=== PATIENT | male | born 1935 | race Caucasian/White ===

== ENCOUNTER 2017-09-30 07:27 | Observation (INO) | payer MEDICARE, OTHER ==
[~2017-09-30] VITALS: Ht 182.9 cm; Wt 60.0 kg
[2017-09-30] VITALS (8 sets, daily range): BP systolic 97–146; BP diastolic 53–68; PULSE 45–77; RESP 14–18; TEMP 97.5–98.1; O2SAT 96–99
[~2017-09-30 07:27] MED LIST: FERR324T4 PO; PROT40TA PO; TAB-TAB PO; Z.0.NO CURRENT MEDS
[2017-09-30] MEDS ORDERED: SODIUM CHLORIDE 0.9% FLUSH 10 ML FLUSH IV FLUSH PRN ×2 (08:00→12:45)
--- NOTE | 2017-09-30 08:01 | PD ---
HPI Chief Complaint: Altered Mental Status Time Seen by Provider: 07:41 Travel History International Travel<30 days: No Contact w/Intl Traveler<30days: No Traveled to known affect area: No History of Present Illness HPI 81-year-old male presents after found wandering around by his truck at an [employer] mall parking lot. The police brought him in voluntarily. Patient states he might be a little bit confused but denies specific complaints. He can't tell me how long he has been like that. He states he has a house in [place]. He states he has nobody he can contact in the area. He states that it might be October but cannot elaborate any further on the date in regards to year or day. He states he hasn't seen a physician in multiple years. History is significantly limited. PFSH Past Medical History Medical History: Denies Significant Hx Arthritis: No Asthma: No Autoimmune Disease: No Blood Disorders: No Anxiety: No Depression: No Heart Rhythm Problems: No Cancer: No Cardiovascular Problems: No High Cholesterol: No Chemotherapy: No Chest Pain: No Congestive Heart Failure: No COPD: No Cerebrovascular Accident: No Diabetes: No Endocrine: No Gastrointestinal Disorders: Yes (RECTAL BLEEDING) GERD: No Glaucoma: No Genitourinary: No Headaches: No Hepatitis: No Hiatal Hernia: No Hypertension: No Immune Disorder: No Musculoskeletal: No Neurologic: No Psychiatric: No Reproductive: No Respiratory: No Migraines: No Myocardial Infarction: No Radiation Therapy: No Renal Failure: No Seizures: No Sickle Cell Disease: No Sleep Apnea: No Thyroid Disease: No Ulcer: No Past Surgical History Abdominal Surgery: No (appendix at age 14.) AICD: No Appendectomy: Yes (IN YOUTH) Arteriovenous Shunt: No Cardiac Surgery: No Cholecystectomy: No Ear Surgery: No Endocrine Surgery: No Eye Surgery: No Genitourinary Surgery: No Gynecologic Surgery: No Insulin Pump: No Joint Replacement: No Oral Surgery: No Pacemaker: No Thoracic Surgery: No Social History Alcohol Use: No Tobacco Use: No Substance Use: No Allergies-Medications (Allergen,Severity, Reaction): Coded Allergies: No Known Allergies (Verified Adverse Reaction, Unknown, 09/30/17) Reported Meds & Prescriptions Reported Meds & Active Scripts Active Reported Ferrous Sulfate 325 Mg Tab 325 Mg PO BID Multivitamin (Multivitamins) 1 Tab Tab 1 Tab PO DAILY Protonix (Pantoprazole Sodium) 40 Mg Tabdr 40 Mg PO DAILY No Current Meds (Miscellaneous Medication) Misc Review of Systems ROS Limitations: Poor Historian Physical Exam Exam Limitations: Poor Historian Narrative GENERAL: Disheveled thin male, pants covered in urine, well-developed patient. SKIN: Warm and dry. HEAD: Normocephalic and atraumatic. EYES: No injection or drainage. ENT: No nasal drainage noted. NECK: Supple, trachea midline. CARDIOVASCULAR: Regular rate and rhythm RESPIRATORY: Breath sounds equal bilaterally at apices. No accessory muscle use. GASTROINTESTINAL: Abdomen soft, non-tender, nondistended. EXTREMITIES: No edema. NEUROLOGICAL: Awake and alert to first name and that he was told he is in [place]. Motor and sensory grossly within normal limits. Normal speech. Data Data Last Documented VS Vital Signs Date Time Temp Pulse Resp B/P (MAP) Pulse Ox O2 Delivery O2 Flow Rate FiO2 09/30/17 09:00 54 16 120/57 (78) 99 09/30/17 08:00 97.5 09/30/17 07:50 Room Air Orders Orders Complete Blood Count With Diff (09/30/17 07:51) Comprehensive Metabolic Panel (09/30/17 07:51) Urinalysis - C+S If Indicated (09/30/17 07:51) Ct Brain W/O Iv Contrast(Rout) (09/30/17 07:51) Blood Glucose (09/30/17 07:51) Ecg Monitoring (09/30/17 07:51) Iv Access Insert/Monitor (09/30/17 07:51) Oximetry (09/30/17 07:51) Sodium Chloride 0.9% Flush (Ns Flush) (09/30/17 08:00) Drug Screen, Random Urine (09/30/17 07:51) Alcohol (Ethanol) (09/30/17 07:51) Cath For Specimen (09/30/17 08:43) Lorazepam Inj (Ativan Inj) (09/30/17 09:30) Lorazepam Inj (Ativan Inj) (09/30/17 10:15) Lorazepam Inj (Ativan Inj) (09/30/17 11:45) Admit Order (Ed Use Only) (09/30/17 12:34) Place In Observation (09/30/17 ) Vital Signs (Adult) Q4H (09/30/17 12:34) Activity Oob With Assistance (09/30/17 12:34) Business Economist / Telemetry .CONTINUOUS (09/30/17 12:34) Intake + Output SANTO.QSHIFT (09/30/17 12:34) Diet Heart Healthy (09/30/17 Lunch) Sodium Chlor 0.45% 1000 Ml Inj (1/2 Ns 1 (09/30/17 12:34) Sodium Chloride 0.9% Flush (Ns Flush) (09/30/17 12:45) Sodium Chloride 0.9% Flush (Ns Flush) (09/30/17 21:00) Acetaminophen (Tylenol) (09/30/17 12:45) Ondansetron Inj (Zofran Inj) (09/30/17 12:45) Case Management Consult (09/30/17 12:34) Scd Bilateral/Knee High SANTO.BID (09/30/17 12:34) Naloxone Inj (Narcan Inj) (09/30/17 12:45) Sennosides (Senokot) (09/30/17 12:45) Labs Laboratory Tests Test 09/30/17 07:50 09/30/17 08:55 White Blood Count 8.7 TH/MM3 Red Blood Count 3.96 MIL/MM3 Hemoglobin 12.8 GM/DL Hematocrit 37.7 % Mean Corpuscular Volume 95.3 FL Mean Corpuscular Hemoglobin 32.2 PG Mean Corpuscular Hemoglobin Concent 33.8 % Red Cell Distribution Width 13.5 % Platelet Count 221 TH/MM3 Mean Platelet Volume 8.7 FL Neutrophils (%) (Auto) 77.0 % Lymphocytes (%) (Auto) 11.0 % Monocytes (%) (Auto) 11.4 % Eosinophils (%) (Auto) 0.4 % Basophils (%) (Auto) 0.2 % Neutrophils # (Auto) 6.7 TH/MM3 Lymphocytes # (Auto) 1.0 TH/MM3 Monocytes # (Auto) 1.0 TH/MM3 Eosinophils # (Auto) 0.0 TH/MM3 Basophils # (Auto) 0.0 TH/MM3 CBC Comment DIFF FINAL Differential Comment Blood Urea Nitrogen 21 MG/DL Creatinine 0.77 MG/DL Random Glucose 110 MG/DL Total Protein 7.3 GM/DL Albumin 3.3 GM/DL Calcium Level 8.9 MG/DL Alkaline Phosphatase 63 U/L Aspartate Amino Transf (AST/SGOT) 28 U/L Alanine Aminotransferase (ALT/SGPT) 23 U/L Total Bilirubin 1.0 MG/DL Sodium Level 135 MEQ/L Potassium Level 3.6 MEQ/L Chloride Level 99 MEQ/L Carbon Dioxide Level 27.5 MEQ/L Anion Gap 9 MEQ/L Estimat Glomerular Filtration Rate 97 ML/MIN Ethyl Alcohol Level LESS THAN 3 MG/DL Urine Color YELLOW Urine Turbidity CLEAR Urine pH 6.5 Urine Specific [place] 1.026 Urine Protein TRACE mg/dL Urine Glucose (UA) NEG mg/dL Urine Ketones 10 mg/dL Urine Occult Blood NEG Urine Nitrite NEG Urine Bilirubin NEG Urine Urobilinogen 2.0 MG/DL Urine Leukocyte Esterase NEG Urine RBC LESS THAN 1 /hpf Urine WBC 1 /hpf Urine Mucus FEW /lpf Microscopic Urinalysis Comment CATH-CULT NOT IND Urine Opiates Screen NEG Urine Barbiturates Screen NEG Urine Amphetamines Screen NEG Urine Benzodiazepines Screen NEG Urine Cocaine Screen NEG Urine Cannabinoids Screen NEG MDM Medical Decision Making Medical Screen Exam Complete: Yes Emergency Medical Condition: Yes Medical Record Reviewed: Yes (past history confirmed) Interpretation(s) CBC & BMP Diagram 09/30/17 07:50 Total Protein 7.3, Albumin 3.3 L, Calcium Level 8.9, Alkaline Phosphatase 63, Aspartate Amino Transf (AST/SGOT) 28, Alanine Aminotransferase (ALT/SGPT) 23, Total Bilirubin 1.0 Last [address] 09/30/17 0751 Signed Impressions: Service Date/Time: September 11:50 - CONCLUSION: No acute intracranial findings Abiel Romano MD Differential Diagnosis UTI, hyponatremia, intercranial, dementia Narrative Course Will check blood work, urinalysis, CT scan and monitor Lab work, urinalysis without emergent findings. Patient refusing to cooperate with CT. He will be given Ativan to help coordinate, needed a total of 1.5 mg to coordinate imaging ct no emergent, will place in observation Physician Communication Physician Communication dr riley agrees to admit Diagnosis Primary Impression: Altered mental status Qualified Codes: R41.82 - Altered mental status, unspecified Admitting Information Admitting Physician Requests: Observation Jeanne Vann MD Sep 30, 2017 08:00
[2017-09-30 08:13] LABS: AUTOMATED NEUTROPHIL # 6.7 TH/MM3 (1.8-7.7); BASOPHIL % 0.2 % (0.0-2.0); EOSINOPHIL % 0.4 % (0.0-4.0); HEMATOCRIT 37.7 % (39.0-51.0); HEMOGLOBIN 12.8 GM/DL (13.0-17.0); MEAN CELL VOLUME 95.3 FL (80.0-100.0); MEAN CORPUSCULAR HEMOGLOBIN 32.2 PG (27.0-34.0); MEAN CORPUSCULAR HGB CONC 33.8 % (32.0-36.0); MEAN PLATELET VOLUME 8.7 FL (7.0-11.0); MONO % 11.4 % (0.0-8.0); PLATELET COUNT 221 TH/MM3 (150-450); RED BLOOD COUNT 3.96 MIL/MM3 (4.50-5.90); RED CELL DISTRIBUTION WIDTH 13.5 % (11.6-17.2); WHITE BLOOD COUNT 8.7 TH/MM3 (4.0-11.0)
[2017-09-30 08:22] LABS: ALBUMIN 3.3 GM/DL (3.4-5.0); ALT (GPT) 23 U/L (12-78); AST (GOT) 28 U/L (15-37); BICARBONATE 27.5 MEQ/L (21.0-32.0); BLOOD UREA NITROGEN 21 MG/DL (7-18); CALCIUM 8.9 MG/DL (8.5-10.1); CHLORIDE 99 MEQ/L (98-107); CREATININE 0.77 MG/DL (0.60-1.30); GLOMERULAR FILTRATION RATE 97 ML/MIN (>89); GLUCOSE,RANDOM 110 MG/DL (74-106); SODIUM (NA) 135 MEQ/L (136-145)
[2017-09-30 08:25] LABS: ALKALINE PHOSPHATASE 63 U/L (45-117); TOTAL PROTEIN 7.3 GM/DL (6.4-8.2)
[2017-09-30 09:24] LABS: BILIRUBIN, URINE NEG (NEG); BLOOD, URINE NEG (NEG); GLUCOSE,URINE NEG (NEG); KETONE, URINE 10 mg/dL (NEG); MUCUS URINE FEW /lpf (OCC); NITRITE,URINE NEG (NEG); PH, URINE 6.5 (5.0-8.5); URINE COLOR YELLOW (YELLW/STRAW); URINE LEUKOCYTE ESTERASE NEG (NEG)
[2017-09-30] MEDS ORDERED: LORazepam 2 MG/ML VIAL IV PUSH ONE ×3 (09:30→11:45)
--- NOTE | 2017-09-30 12:15 | RADRPT ---
EXAM DATE/TIME: 09/30/2017 11:50 [facility] COMPARISON: No previous studies available for comparison. INDICATIONS : Altered mental status RADIATION DOSE: 43.95 CTDIvol (mGy) MEDICAL HISTORY : None SURGICAL HISTORY : Appendectomy. ENCOUNTER: Initial ACUITY: 1 day PAIN SCALE: 0/10 LOCATION: cranial TECHNIQUE: Multiple contiguous axial images were obtained of the head. Using automated exposure control and adj ustment of the mA and/or kV according to patient size, radiation dose was kept as low as reasonably a chievable to obtain optimal diagnostic quality images. DICOM format image data is available electro nically for review and comparison. FINDINGS: There is mild symmetric atrophy. No evidence of mass or hemorrhage. There is nothing to suggest acute infarction. Extracranial structures are benign and intact. CONCLUSION: No acute intracranial findings Abiel Romano MD on September 30, 2017 at 12:13 Board Certified Radiologist. This report was verified electronically.
[2017-09-30] MEDS: SODIUM CHLOR 0.45% 1000 ML INJ 1,000 ML IV SCH ×2 (12:34→14:26)
[2017-09-30] MEDS ORDERED: SENNOSIDES 8.6 MG TAB PO PRN (12:45)
[2017-09-30] MEDS ORDERED: NALOXONE HCL 0.4 MG/ML AMP IV PUSH PRN (12:45)
[2017-09-30] MEDS ORDERED: ONDANSETRON HCL 4 MG/2 ML VIAL IVP PRN (12:45)
[2017-09-30] MEDS ORDERED: ACETAMINOPHEN 325 MG TAB PO PRN (12:45)
--- NOTE | 2017-09-30 13:05 | HHI.HP ---
[facility] No Primary Care Physician Admission Diagnosis altered mental status Diagnoses: Chief Complaint: Altered mental status Travel History International Travel<30 Days: No Contact w/Intl Traveler <30 Da: No Traveled to Known Affected Are: No History of Present Illness This is an 81-year-old male with no past medical history who presented with altered mental status. Patient was sedated during my interview history taken from Dr. Vann, ED physician and patient's nurse. Per Dr. Vann patient was found wandering in the [place] mall parking lot. The police brought him in voluntarily. Patient has no complaints. He is able to give specific details in the past but unable to give current history. He stated was and how simple [place]. Patient was very belligerent in the hospital, he did not want any imaging study and wanted to go home so he was given Ativan which caused him to be sedated. Per nurse he was very detailed by his past but could not tell her location, date , current president. Patient was able to tell his name. He stated that he did not want anyone to know that he is in the hospital. Patient also denies any past medical history to the nurse. Unable to obtain review of systems secondary to altered mental status and patient being sedated with Ativan. Past Family Social History Past Medical History Unable to obtain due to sedation. Per patient's nurse he has no past medical history. Past Surgical History Unable to obtain. Reported Medications Per patient's nurse he denied taking any medication. Allergies: Coded Allergies: No Known Allergies (Verified Adverse Reaction, Unknown, 09/30/17) Active Ordered Medications Current Medications Sodium Chloride (NS Flush) 2 ml UNSCH PRN IV FLUSH FLUSH AFTER USING IV ACCESS ; Start 09/30/17 at 08:00 Lorazepam (Ativan Inj) 0.5 mg ONCE ONCE IV PUSH Last administered on 09:43; Start 09/30/17 at 09:30; Stop 09/30/17 at 09:31; Status DC Lorazepam (Ativan Inj) 0.5 mg ONCE ONCE IV PUSH Last administered on 12/28/ 17at 10:22; Start 09/30/17 at 10:15; Stop 09/30/17 at 10:16; Status DC Lorazepam (Ativan Inj) 0.5 mg ONCE ONCE IV PUSH Last administered on 11:59; Start 09/30/17 at 11:45; Stop 09/30/17 at 11:46; Status DC Sodium Chloride 1,000 ml @ 75 mls/hr [id number] IV ; Start 09/30/17 at 12:34; Status UNV Sodium Chloride (NS Flush) 2 ml UNSCH PRN IV FLUSH FLUSH AFTER USING IV ACCESS ; Start 09/30/17 at 12:45; Status UNV Sodium Chloride (NS Flush) 2 ml BID IV FLUSH ; Start 09/30/17 at 21:00; Status UNV Acetaminophen (Tylenol) 650 mg Q4H PRN PO TEMP > 100.4; Start 09/30/17 at 12: 45; Status UNV Ondansetron HCl (Zofran Inj) 4 mg Q6H PRN IVP NAUSEA OR VOMITING; Start at 12:45; Status UNV Naloxone HCl (Narcan Inj) 0.4 mg UNSCH PRN IV PUSH SEE LABEL COMMENTS; Start 09/30/17 at 12:45; Status UNV Sennosides (Senokot) 17.2 mg Q12H PRN PO Moderate constipation; Start at 12:45; Status UNV Family History Unable to obtain due to sedation. Social History Patient says he lives in [place] but seems to be homeless. He has a very bad odor to himself. Physical Exam Vital Signs Vital Signs Date Time Temp Pulse Resp B/P (MAP) Pulse Ox O2 Delivery O2 Flow Rate FiO2 09/30/17 12:50 46 14 111/55 (73) 99 09/30/17 12:00 45 16 109/56 (73) 99 09/30/17 11:00 50 16 97/54 (68) 99 09/30/17 09:00 54 16 120/57 (78) 99 09/30/17 08:00 97.5 54 16 119/60 (79) 99 09/30/17 07:50 49 15 97 Room Air 09/30/17 07:33 97.5 65 16 146/68 (94 99 Physical Exam GENERAL: This is a well-nourished unkempt patient who has a bad odor and appears to not have bath for weeks. SKIN: no rashes noted but appears dirty. HEAD: Atraumatic. Normocephalic. No temporal or scalp tenderness. EYES: Pupils equal round and reactive. Extraocular motions intact. No scleral icterus. No injection or drainage. ENT: Nose without bleeding, purulent drainage or septal hematoma. Throat without erythema, tonsillar hypertrophy or exudate. Uvula midline. Airway patent. NECK: Trachea midline. No JVD or lymphadenopathy. Supple, nontender, no meningeal signs. CARDIOVASCULAR: Regular rate and rhythm without murmurs, gallops, or rubs. RESPIRATORY: Clear to auscultation. Breath sounds equal bilaterally. No wheezes , rales, or rhonchi. GASTROINTESTINAL: Abdomen soft, non-tender, nondistended. No hepato-splenomegaly , or palpable masses. No guarding. MUSCULOSKELETAL: Extremities without clubbing, cyanosis, or edema. No joint tenderness, effusion, or edema noted. No calf tenderness. Negative Homans sign bilaterally. difficulty palpated DP pulses and extremity are cold. NEUROLOGICAL: Awake and alert. Cranial nerves II through XII intact. Motor and sensory grossly within normal limits. Five out of 5 muscle strength in all muscle groups. Normal speech. Laboratory Laboratory Tests Test 09/30/17 07:50 09/30/17 08:55 White Blood Count 8.7 Red Blood Count 3.96 Hemoglobin 12.8 Hematocrit 37.7 Mean Corpuscular Volume 95.3 Mean Corpuscular Hemoglobin 32.2 Mean Corpuscular Hemoglobin Concent 33.8 Red Cell Distribution Width 13.5 Platelet Count 221 Mean Platelet Volume 8.7 Neutrophils (%) (Auto) 77.0 Lymphocytes (%) (Auto) 11.0 Monocytes (%) (Auto) 11.4 Eosinophils (%) (Auto) 0.4 Basophils (%) (Auto) 0.2 Neutrophils # (Auto) 6.7 Lymphocytes # (Auto) 1.0 Monocytes # (Auto) 1.0 Eosinophils # (Auto) 0.0 Basophils # (Auto) 0.0 CBC Comment DIFF FINAL Differential Comment Blood Urea Nitrogen 21 Creatinine 0.77 Random Glucose 110 Total Protein 7.3 Albumin 3.3 Calcium Level 8.9 Alkaline Phosphatase 63 Aspartate Amino Transf (AST/SGOT) 28 Alanine Aminotransferase (ALT/SGPT) 23 Total Bilirubin 1.0 Sodium Level 135 Potassium Level 3.6 Chloride Level 99 Carbon Dioxide Level 27.5 Anion Gap 9 Estimat Glomerular Filtration Rate 97 Ethyl Alcohol Level LESS THAN 3 Urine Color YELLOW Urine Turbidity CLEAR Urine pH 6.5 Urine Specific [place] 1.026 Urine Protein TRACE Urine Glucose (UA) NEG Urine Ketones 10 Urine Occult Blood NEG Urine Nitrite NEG Urine Bilirubin NEG Urine Urobilinogen 2.0 Urine Leukocyte Esterase NEG Urine RBC LESS THAN 1 Urine WBC 1 Urine Mucus FEW Microscopic Urinalysis Comment CATH-CULT NOT IND Urine Opiates Screen NEG Urine Barbiturates Screen NEG Urine Amphetamines Screen NEG Urine Benzodiazepines Screen NEG Urine Cocaine Screen NEG Urine Cannabinoids Screen NEG Result Diagram: 09/30/1774909/30/17749 Imaging Last Impressions Head CT 09/30/17750 Signed Impressions: Service Date/Time: , September 30, 2017 11:50 - CONCLUSION: No acute intracranial findings Abiel Romano MD Caprini VTE Risk Assessment Caprini VTE Risk Assessment: No/Low Risk (score <= 1) Caprini Risk Assessment Model Point Value = 1 Point Value = 2 Point Value = 3 Point Value = 5 Age 41-60 Minor surgery BMI > 25 kg/m2 Swollen legs Varicose veins or History of unexplained or recurrent spontaneous Oral contraceptives or hormone replacement Sepsis (< 1 month) Serious lung disease, including pneumonia (< 1 month) Abnormal pulmonary function Acute myocardial infarction Congestive heart failure (< 1 month) History of inflammatory bowel disease Medical patient at bed rest Age 61-74 Arthroscopic surgery Major open surgery (> 45 min) Laparoscopic surgery (> 45 min) Malignancy Confined to bed (> 72 hours) Immobilizing plaster cast Central venous access Age >= 75 History of VTE Family history of VTE Factor V Leiden Prothrombin [id number] Lupus anticoagulant Anticardiolipin antibodies Elevated serum homocysteine Heparin-induced thrombocytopenia Other congenital or acquired thrombophilia Stroke (< 1 month) Elective arthroplasty Hip, pelvis, or leg fracture Acute spinal cord injury (< 1 month) Prophylaxis Regimen Total Risk Factor Score Risk Level Prophylaxis Regimen 0-1 Low Early ambulation 2 Moderate Order ONE of the following: *Sequential Compression Device (SCD) *Heparin 5000 units SQ BID 3-4 Higher Order ONE of the following medications: *Heparin 5000 units SQ TID *Enoxaparin/Lovenox 40 mg SQ daily (WT < 150 kg, CrCl > 30 mL/min) *Enoxaparin/Lovenox 30 mg SQ daily (WT < 150 kg, CrCl > 10-29 mL/min) *Enoxaparin/Lovenox 30 mg SQ BID (WT < 150 kg, CrCl > 30 mL/min) AND/OR *Sequential Compression Device (SCD) 5 or more Highest Order ONE of the following medications: *Heparin 5000 units SQ TID (Preferred with Epidurals) *Enoxaparin/Lovenox 40 mg SQ daily (WT < 150 kg, CrCl > 30 mL/min) *Enoxaparin/Lovenox 30 mg SQ daily (WT < 150 kg, CrCl > 10-29 mL/min) *Enoxaparin/Lovenox 30 mg SQ BID (WT < 150 kg, CrCl > 30 mL/min) AND *Sequential Compression Device (SCD) Assessment and Plan Problem List: (1) Altered mental status ICD Code: R41.82 - Altered mental status, unspecified Status: Acute Assessment and Plan This is a an 81-year-old male who has no past medical history presented with altered mental status Altered mental status -CT scan of the head negative for any acute process. Last review relatively normal. From the history taken from the ED physician and patient's nurse this may be secondary to dementia versus psychiatric issue. -once Ativan wears off will be able to give a better history. -Will monitor and observation. Also get MRI of the brain. ? Peripheral vascular disease -Difficulty appreciating DP pulses and lower extremities are cold. We will get an ALICE. Management based on results. DVT prophylaxis -SCDs. Discussed Condition With With patient's nurse and Dr. Vann. Problem Qualifiers (1) Altered mental status: Qualified Codes: R41.82 - Altered mental status, unspecified Giovana Watts MD Sep 30, 2017 13:05
--- NOTE | 2017-09-30 16:04 | RADRPT ---
EXAM DATE/TIME: 09/30/2017 15:08 [facility] COMPARISON: CT BRAIN W/O CONTRAST, September 30, 2017, 11:50. INDICATIONS : Psychosis. MEDICAL HISTORY : Unknown. SURGICAL HISTORY : Appendectomy. ENCOUNTER: Subsequent ACUITY: 1 day PAIN SCORE: Nonresponsive. LOCATION: cranial TECHNIQUE: Multiplanar, multisequence MRI of the brain was performed without contrast. FINDINGS: CEREBRUM: The ventricles are normal for age. There is bilateral cortical atrophy characteristic for patient's a ge. No evidence of midline shift, mass lesion, hemorrhage or acute infarction. No extraaxial fluid collections are seen. The pituitary gland and suprasellar cistern are normal in configuration. WHITE MATTER: No significant signal abnormalities are seen in the white matter. POSTERIOR FOSSA: The cerebellum and brainstem are intact. The 4th ventricle is midline. The cerebellopontine angle is unremarkable. The cerebellar tonsils are normal in position. DIFFUSION IMAGING: No focal areas of restricted diffusion are seen. No evidence of acute infarction. EXTRACRANIAL: The visualized portions of the orbits and paranasal sinuses are unremarkable. CONCLUSION: Bilateral cortical atrophy. Otherwise unremarkable exam for patient's age. Wilbur Yan MD on September 30, 2017 at 16:00 Board Certified Radiologist. This report was verified electronically.
--- NOTE | 2017-09-30 16:34 | RADRPT ---
EXAM DATE/TIME: 09/30/2017 14:51 [facility] COMPARISON: No previous studies available for comparison. INDICATIONS : MRI clearance. MEDICAL HISTORY : None. SURGICAL HISTORY : None. ENCOUNTER: Initial ACUITY: 1 day PAIN SCORE: Non-responsive. LOCATION: Bilateral chest FINDINGS: A single view of the chest demonstrates the lungs to be aerated without evidence of mass, infiltrate or effusion. There is some nonspecific elevation of the right hemidiaphragm. The cardiomediastinal c ontours are unremarkable. Osseous structures are intact. CONCLUSION: No acute pulmonary infiltrates. No metallic devices are demonstrated. Wilbur Yan MD on September 30, 2017 at 16:32 Board Certified Radiologist. This report was verified electronically.
--- NOTE | 2017-09-30 16:51 | RADRPT ---
EXAM DATE/TIME: 09/30/2017 14:53 [facility] COMPARISON: No previous studies available for comparison. INDICATIONS : MRI clearance. MEDICAL HISTORY : None. SURGICAL HISTORY : Appendectomy. ENCOUNTER: Initial ACUITY: 1 day PAIN SCORE: Non-responsive. LOCATION: Bilateral abdomen. FINDINGS: Supine view of the abdomen was performed. The abdominal bowel gas pattern is normal. No abnormal ma sses, calcifications, or organomegaly is seen. The osseous structures are unremarkable. CONCLUSION: 1. No metallic foreign body is identified. Lucas Lund MD on September 30, 2017 at 16:49 Board Certified Radiologist. This report was verified electronically.
[2017-09-30] MEDS: SODIUM CHLORIDE 0.9% FLUSH 10 ML FLUSH IV FLUSH SCH (20:59)
[2017-10-01] VITALS: BP_SYST 131; BP_SYST 95; BP_DIAS 55; BP_DIAS 78; PULSE 68; RESP 17; TEMP 98; O2SAT 99
[2017-10-01] MEDS: SODIUM CHLOR 0.45% 1000 ML INJ 1,000 ML IV SCH (01:59)
[2017-10-01 06:00] VITALS: BP 105/58; PULSE 74; RESP 18; TEMP 98.7; O2SAT 98
[2017-10-01 08:00] VITALS: PULSE 54
[2017-10-01] MEDS: SODIUM CHLORIDE 0.9% FLUSH 10 ML FLUSH IV FLUSH SCH (08:03)
[2017-10-01 08:07] VITALS: BP 90/50; PULSE 45; RESP 20; TEMP 98.9; O2SAT 96
--- NOTE | 2017-10-01 09:42 | RADRPT ---
EXAM DATE/TIME: 09/30/2017 00:00 [facility] COMPARISON: No previous studies available for comparison. INDICATIONS : Altered mental status, poor circulation TECHNIQUE: Four-cuff ankle and brachial pressures were obtained. Pulse cuff waveform tracings of the ankles were recorded, and ankle-brachial indices were calculated. PRESSURES (mmHg): Brachial (arm): Right 96 Left iv site Ankle: Right CNO >240 Left 139 ALICE: Right CNO >240 Left 1.45 TBI: Right 0.38 Left 0.31 PULSED CUFF WAVEFORMS: Demonstrate decreased amplitude bilaterally. CONCLUSION: 1. Unable to obtain ankle brachial indices on the right with elevated ankle-brachial indices on the l eft consistent with diffusely calcified vessels. 2. There are mild to moderately decreased toe brachial indices bilaterally consistent with peripheral arterial disease. Art Morgan MD on October 01, 2017 at 9:38 Board Certified Radiologist. This report was verified electronically.
--- NOTE | 2017-10-01 10:44 | HHI.DS ---
Discharge Summary Admission Date Sep 30, 2017 at 12:35 Discharge Date: Oct 01, 2017 Admitting Diagnosis altered mental status (1) Altered mental status ICD Code: R41.82 - Altered mental status, unspecified Status: Acute Procedures None Brief History - From Admission This is an 81-year-old male with no past medical history who presented with altered mental status. Patient was sedated during my interview history taken from Dr. Vann, ED physician and patient's nurse. Per Dr. Vann patient was found wandering in the [employer] parking lot. The police brought him in voluntarily. Patient has no complaints. He is able to give specific details in the past but unable to give current history. He stated was and how simple Maries. Patient was very belligerent in the hospital, he did not want any imaging study and wanted to go home so he was given Ativan which caused him to be sedated. Per nurse he was very detailed by his past but could not tell her location, date , current president. Patient was able to tell his name. He stated that he did not want anyone to know that he is in the hospital. Patient also denies any past medical history to the nurse. Unable to obtain review of systems secondary to altered mental status and patient being sedated with Ativan. CBC/BMP: 09/30/17 0750 09/30/17 0750 Significant Findings Laboratory Tests Test 09/30/17 07:50 09/30/17 08:55 Red Blood Count 3.96 MIL/MM3 (4.50-5.90) Hemoglobin 12.8 GM/DL (13.0-17.0) Hematocrit 37.7 % (39.0-51.0) Neutrophils (%) (Auto) 77.0 % (16.0-70.0) Monocytes (%) (Auto) 11.4 % (0.0-8.0) Monocytes # (Auto) 1.0 TH/MM3 (0-0.9) Blood Urea Nitrogen 21 MG/DL (7-18) Random Glucose 110 MG/DL (74-106) Albumin 3.3 GM/DL (3.4-5.0) Sodium Level 135 MEQ/L (136-145) Urine Ketones 10 mg/dL (NEG) Urine Mucus FEW /lpf (OCC) Hospital Course Mr. Currie is an 81-year-old male. He is admitted secondary to altered mental status, found wandering and disoriented. At baseline he may have dementia. Medical workup was provided including imaging of the brain and screenings for infections. No etiology was found for his altered mental state. Psychiatric versus dementia exacerbation is suspected. Medically this patient has been cleared, at this point, for discharge to psychiatry. He'll transfer to inpatient psychiatry today. Pt Condition on Discharge: Stable Discharge Disposition: Disc to Psych Care Fac Discharge Time: <= 30 minutes Discharge Instructions DIET: Follow Instructions for: As Tolerated, No Restrictions Activities you can perform: Regular-No Restrictions Follow up Referrals: PCP Follow-up - 2-3 Days Continued Medications: Multiple Vitamin (Multivitamin) 1 Tab Tab 1 TAB PO DAILY Discontinued Medications: Ferrous Sulfate (Ferrous Sulfate) 325 Mg Tab 325 MG PO BID Miscellaneous (No Current Meds) Misc Pantoprazole Sod (Protonix) 40 Mg Tabdr 40 MG PO DAILY Nico Quinn MD Oct 01, 2017 10:44
[2017-10-01] MEDS ORDERED: QUEtiapine FUMARATE 25 MG TAB PO SCH (12:00)
[2017-10-01] MEDS ORDERED: PILL SPLITTER OTHER PRN (12:00)
--- NOTE | 2017-10-01 12:00 | PD.PSY.CON ---
Provisional Diagnosis Admission Date Sep 30, 2017 at 12:35 [place] I. Dementia with behavioral disturbances, unspecified psychosis [place] II. Deferred [place] III. No significant medical history [place] IV. No collateral information at the moment, [place] V. 35 History of Present Illness Service Psychiatry Consult Requested By ER Team Reason for Consult Aggressive behavior and agitation, Primary Care Physician No Primary Care Physician HPI The patient is an 81-year-old white man, he reports that he lives alone has no family, supported by Social Security, single, he denies previous psychiatric history, no psychiatric hospitalizations, no suicidal attempts, with no past medical history who presented with altered mental status. Patient was initially very agitated and aggressive in the ER. Patient was sedated with Ativan IM by ER physician. Per Dr. Vann patient was found wandering in the [employer] parking lot. The police brought him in voluntarily basis initially. But, he was Jim[place]nez acted posteriorly. Chart was reviewed. Case discussed with nurse in charge and PA Ms. Galaviz. On psychiatric evaluation patient is found calm, superficially cooperative, pleasantly disoriented and confused. He is malodorous, dirty, visibly self neglected. Patient says that he doesn't know what she is doing here. He does not know the reason he was brought to the hospital. Patient is unable to clarify were his living, or who is living with. He says that he wants to go home, but he doesn't know his address. At the beginning he says that he is [place], but minutes later he says that he lives in [place]. He reports good mood, he says that he is happy, denies suicidal and homicidal ideation, he denies visual and auditory hallucinations. Patient is disoriented in time and place. Able to repeat 3 words, but unable to recall the and 5 minutes later. He is able to list the days of the week, but he cannot do it backwards. Cannot spell the word world in any way. As per nursing charge, now the patient is quiet and calm, but before he was agitated, aggressive, wanting to leave the hospital and very disorganized. Review of Systems Constitutional: DENIES: Diaphoretic episodes, Fatigue, Fever, Weight gain, Weight loss, Chills, Dizziness, Change in appetite, Night Sweats Endocrine: DENIES: Heat/cold intolerance, Polydipsia, Polyuria, Polyphagia Eyes: DENIES: Blurred vision, Diplopia, Eye inflammation, Eye pain, Vision loss , Photosensitivity, Double Vision Ears, nose, mouth, throat: DENIES: Tinnitus, Hearing loss, Vertigo, Nasal discharge, Oral lesions, Throat pain, Hoarseness, Ear Pain, Running Nose, Epistaxis, Sinus Pain, Toothache, Odynophagia Respiratory: DENIES: Apneas, Cough, Snoring, Wheezing, Hemoptysis, Sputum production, Shortness of breath Cardiovascular: DENIES: Chest pain, Palpitations, Syncope, Dyspnea on Exertion , PND, Lower Extremity Edema, Orthopnea, Claudication Gastrointestinal: DENIES: Abdominal pain, Black stools, Bloody stools, Constipation, Diarrhea, Nausea, Vomiting, Difficulty Swallowing, Anorexia Genitourinary: DENIES: Sexual dysfunction, Urinary frequency, Urinary incontinence, Urgency, Hematuria, Dysuria, Nocturia, Penile Discharge, Testicular Pain, Testicular Swelling Musculoskeletal: DENIES: Joint pain, Muscle aches, Stiffness, Joint Swelling, Back pain, Neck pain Integumentary: DENIES: Abnormal pigmentation, Nail changes, Pruritus, Rash Hematologic/lymphatic: DENIES: Bruising, Lymphadenopathy Immunologic/allergic: DENIES: Eczema, Urticaria Neurologic: DENIES: Abnormal gait, Headache, Localized weakness, Paresthesias, Seizures, Speech Problems, Tremor, Poor Balance Psychiatric: COMPLAINS OF: Confusion, Agitation, Delusions, DENIES: Anxiety, Mood changes, Depression, Hallucinations, Suicidal Ideation, Homicidal Ideation Past Family Social History Coded Allergies: No Known Allergies (Verified Allergy, Unknown, 09/30/17) Reported Medications Ferrous Sulfate (Ferrous Sulfate) 325 Mg Tab, 325 MG PO BID 07/31/09 Multiple Vitamin (Multivitamin) 1 Tab Tab, 1 TAB PO DAILY 07/31/09 Pantoprazole Sod (Protonix) 40 Mg Tabdr, 40 MG PO DAILY 07/31/09 Miscellaneous (No Current Meds) Misc 07/27/09 Current Medications Medications (Trade) Dose Ordered Sig/Manish Route Start Time Stop Time Status Last Admin Sodium Chloride 1,000 ml @ 75 mls/hr [id number] IV 09/30/17 12:34 10/01/17 01:59 (NS Flush) 2 ml UNSCH PRN IV FLUSH 09/30/17 12:45 (NS Flush) 2 ml BID IV FLUSH 09/30/17 21:00 (Tylenol) 650 mg Q4H PRN PO 09/30/17 12:45 (Zofran Inj) 4 mg Q6H PRN IVP 09/30/17 12:45 (Narcan Inj) 0.4 mg UNSCH PRN IV PUSH 09/30/17 12:45 (Senokot) 17.2 mg Q12H PRN PO 09/30/17 12:45 Family Psych History Patient denies family psychiatric history Social History Patient says that he was born in [place], he lives in [place], single , no family around, Patient's Strengths (min. 2) Verbal communication Physical Exam No tremors, no EPS, no stiffness, no psychomotor retardation or agitation at the moment Vital Signs Vital Signs Date Time Temp Pulse Resp B/P (MAP) Pulse Ox O2 Delivery O2 Flow Rate FiO2 10/01/17 08:07 98.9 45 20 90/50 (63) 96 09/30/17 07:50 Room Air I/O 10/01/17 10/01/17 10/02/17 08:00 16:00 00:00 Intake Total 480 ml Balance 480 ml Mental Status Examination Appearance: Appropriate Consciousness: Alert Orientation: Person Motor Activity: Normal gait Speech: Hesitant, Slow Language: Adequate Fund of Knowledge: Inadequate Attention and Concentration: Adequate Memory: Impaired Mood: Appropriate Affect: Appropriate Thought Process & Associations: Loose associations, Disorganized Thought Content: Appropriate Hallucination Type: None Delusion Type: None Suicidal Ideation: No Suicidal Plan: No Suicidal Intention: No Homicidal Ideation: No Homicidal Plan: No Homicidal Intention: No Insight: Poor Judgment: Poor Assessment & Plan Problem List: (1) Dementia with behavioral disturbance ICD Codes: F03.91 - Unspecified dementia with behavioral disturbance Assessment & Plan: On psychiatric evaluation today patient presents calm, superficially cooperative, with visible signs and symptoms of was seen to be ongoing dementia. Patient is disoriented in time and place, with impairment in concentration, recent recall, executive function, abstract thinking, but also with reported agitation and aggressive behavior in the ER. Patient was found wandering in the street, with visible signs of self neglecting behavior, belligerent with the police. Medical workup so far is negative. Patient definitely has an increased risk of danger to himself due to level of dementia, agitation and aggressiveness. He needs psychiatric hospitalization for stabilization. We will start Seroquel 12.5 mg twice a day to control behavior. Haldol 1 mg IM every 6 hours when necessary aggressive behavior and agitation. fellmongery worker intervention for psychosocial assessment, collateral information, individual and group therapies, to start a safe discharge plan. Transfer to psychiatric unit once medically appropriate. Consult appreciated. Assessment & Plan Estimated LOS: days Robert Roberts MD Oct 01, 2017 12:00
[2017-10-01 12:50] VITALS: BP 95/62; PULSE 62; TEMP 98.2; O2SAT 95
[2017-10-02] MEDS ORDERED: ECASA81 PO (14:34)
[2017-10-02] MEDS ORDERED: KLOR10TA PO (14:34)
[2017-10-02] MEDS ORDERED: CHOL1000 PO (14:34)
== END 2017-10-01 14:19 ==
LOC: NEPE 07:27 → NEDA 12:35 → NEPGCP 14:13
PROVIDERS: ADMIT Hospitalist; ATTEND Hospitalist
DX: R41.82 Altered mental status, unspecified (principal); F03.91 Unspecified dementia, unspecified severity, with behavioral disturbance; I73.9 Peripheral vascular disease, unspecified; Z59.0 Homelessness; Z91.83 Wandering in diseases classified elsewhere
CPT/HCPCS: 70450; 70551; 71010; 74000; 80053; 80307; 81001; 85025; 93922; 96361; 96374; 96376; 99285; G0378; J2060; P9612

== ENCOUNTER 2017-10-01 13:56 | Inpatient (IN) | payer OTHER, MEDICARE ==
[~2017-10-01] VITALS: Ht 182.9 cm; Wt 57.3 kg
[2017-10-01] MEDS ORDERED: diphenhydrAMINE HCL 50 MG CAP PO PRN (17:45)
[2017-10-01] MEDS ORDERED: MAGNESIUM HYDROXIDE SUSP 30 ML CUP PO PRN (17:45)
[2017-10-01] MEDS ORDERED: LORazepam 2 MG/ML VIAL IM PRN (17:45)
[2017-10-01] MEDS ORDERED: ALUMINUM/MAGNESIUM/SIMETH 30 ML CUP PO PRN (17:45)
[2017-10-01] MEDS ORDERED: ACETAMINOPHEN 325 MG TAB PO PRN (17:45)
[2017-10-01] MEDS ORDERED: LORazepam 0.5 MG TAB PO PRN (17:45)
[2017-10-01] MEDS ORDERED: PILL SPLITTER OTHER PRN (18:00)
[2017-10-01] MEDS: QUEtiapine FUMARATE 25 MG TAB PO SCH (21:26)
[2017-10-02 06:17] VITALS: BP 112/53; PULSE 59; RESP 17; TEMP 98.2; O2SAT 98
[2017-10-02] MEDS: QUEtiapine FUMARATE 25 MG TAB PO SCH ×2 (08:13→20:44)
[2017-10-02] MEDS ORDERED: NICOTINE 21 MG/24 HR PATCH T-DERMAL SCH (09:00)
[2017-10-02] MEDS ORDERED: REMOVE OLD PATCH T-DERMAL SCH (09:00)
[2017-10-02 10:04] LABS: BICARBONATE 27.6 MEQ/L (21.0-32.0); CALCIUM 8.9 MG/DL (8.5-10.1); CREATININE 0.94 MG/DL (0.60-1.30)
[2017-10-02 10:05] LABS: CHOLESTEROL 114 MG/DL (120-200); TRIGLYCERIDES 86 MG/DL (42-150)
[2017-10-02 10:30] LABS: CHOLESTEROL/ HDL RATIO 2.88 RATIO; HDL CHOLESTEROL 39.5 MG/DL (40.0-60.0); LDL CHOLESTEROL 57 MG/DL (0-99)
[2017-10-02 12:23] LABS: HEMOGLOBIN A1C 5.6 % (4.3-6.0)
[2017-10-02] MEDS ORDERED: POTASSIUM CHLORIDE 10 MEQ CONTROLLED RELEASE TAB PO ONE (14:30)
--- NOTE | 2017-10-02 14:31 | PD.CONS ---
[facility] Consult Requested By Primary Care Physician No Primary Care Physician Diagnoses: History of Present Illness Mr. Currie is an 81-year-old male. He was admitted here secondary to altered mental status is poor cooperation and risk for self-harm secondary to dementia. He is being managed psychiatry secondary to this. Review of Systems ROS Limitations: Altered Mental Status, Poor Historian Cardiovascular: DENIES: Chest pain Gastrointestinal: DENIES: Abdominal pain Past Family Social History Allergies: Coded Allergies: No Known Allergies (Verified Allergy, Unknown, 09/30/17) Past Medical History Hypokalemia Vitamin D deficiency Dementia Past Surgical History Patient cannot recall any prior surgeries (patient is confused) Reported Medications Reported Meds & Active Scripts Active Reported Multivitamin (Multivitamins) 1 Tab Tab 1 Tab PO DAILY Active Ordered Medications Administered Medications Medications (Trade) Dose Ordered Sig/Manish Route PRN Reason Start Time Stop Time Status Last Admin Dose Admin Diphenhydramine HCl (Benadryl) 50 mg HS PRN PO INSOMNIA 10/01/17 17:45 10/01/17 21:26 Quetiapine Fumarate (SEROquel) 12.5 mg BID PO 10/01/17 21:00 10/02/17 08:13 Family History Patient cannot recall this due to confusion Social History Patient cannot recall this due to confusion Physical Exam Vital Signs Vital Signs Date Time Temp Pulse Resp B/P (MAP) Pulse Ox O2 Delivery O2 Flow Rate FiO2 10/02/17 06:17 98.2 59 17 112/53 (72) 98 Physical Exam GENERAL: NAD, A&Ox1 HEAD: Normocephalic. NECK: Supple, trachea midline. No lymphadenopathy. EYES: No scleral icterus. No injection or drainage. CARDIOVASCULAR: Regular rate and rhythm without murmurs, gallops, or rubs. RESPIRATORY: Breath sounds equal bilaterally. No accessory muscle use. GASTROINTESTINAL: Abdomen soft, non-tender, nondistended. MUSCULOSKELETAL: No cyanosis, or edema. SKIN: Warm and dry. NEURO: No focal neurological deficitis. Laboratory Laboratory Tests Test 10/02/17 08:40 10/02/17 08:49 Blood Urea Nitrogen 17 Creatinine 0.94 Random Glucose 97 Calcium Level 8.9 Sodium Level 139 Potassium Level 3.3 Chloride Level 102 Carbon Dioxide Level 27.6 Anion Gap 9 Estimat Glomerular Filtration Rate 77 Thyroid Stimulating Hormone 3rd Gen 2.310 Triglycerides Level 86 Cholesterol Level 114 LDL Cholesterol 57 HDL Cholesterol 39.5 Cholesterol/HDL Ratio 2.88 Vitamin B12 Level 195 25-Hydroxy Vitamin D Total 21.0 Result Diagram: 10/02/17 0840 Assessment and Plan Problem List: (1) Hypokalemia ICD Code: E87.6 - Hypokalemia (2) Vitamin D deficiency ICD Code: E55.9 - Vitamin D deficiency, unspecified (3) Dementia with behavioral disturbance ICD Code: F03.91 - Unspecified dementia with behavioral disturbance Assessment and Plan Assessment and Plan 81-year-old male admitted secondary to altered mental status, with dementia. Findings of low vitamin D and mild hypokalemia. Altered mental status Dementia exacerbation Negative imaging on last hospital admit Continue management per psychiatry Peripheral vascular disease Chronic No acute management necessary Daily aspirin Follows in outpatient No need for further medical management or monitoring of his condition Hypokalemia Mildly low Provided potassium supplement for 5 days No need for follow-up potassium levels No need for further medical management or monitoring Low vitamin D Vitamin D deficiency Start by mouth vitamin D supplementation daily with 1000 units Repeat testing as an outpatient in approximately 3 months No need for further medical management or monitoring during this hospital stay DVT prophylaxis Patient is a ventilatory Medical conditions listed above are treated at this point and no new changes are anticipated during this hospitalization, both in the conditions nor treatments. No further need for monitoring or medical management changes at this time. Medical team will sign off at this time. Nico Quinn MD Oct 02, 2017 14:31
[2017-10-02] MEDS ORDERED: ECASA81 PO (14:34)
[2017-10-02] MEDS ORDERED: CHOL1000 PO (14:34)
[2017-10-02] MEDS ORDERED: KLOR10TA PO (14:34)
--- NOTE | 2017-10-02 15:04 | HHI.HP ---
Provisional Diagnosis Admission Date Oct 01, 2017 at 14:22 Painter I. 1. Dementia with behavioral disturbance Painter II. Deferred Certification of Person's Competence To Provide Express and Informed Consent I have personally examined Judd Currie , a person being served at [facility] on, Oct 02, 2017 15:02. Express and informed consent means consent voluntarily given in writing, by a competent person, after sufficient explanation and disclosure of the subject matter involved to enable the person to make a knowing and willful decision without any element of force, fraud, deceit, duress, or other form of constraint or coercion. This person is 18 years of age or older, is not now known to be incompetent to consent to treatment with a guardian advocate, and does not have a health care surrogate or proxy currently making medical treatment decisions. I have found this person to be one of the following: [] Competent to provide express and informed consent, as defined above, for voluntary admission to this facility and is competent to provide express and informed consent for treatment. He/she has the consistent capacity to make well reasoned, willful, and knowing decisions concerning his or her medical or mental health treatment. The person fully and consistently understands the purpose of the admission for examination/placement and is fully capable of personally exercising all rights assured [place] [x] Incompetent to provide express and informed consent to voluntary admission, and this is incompetent to provide express and informed consent to treatment. The person must be transferred to involuntary status and a petition for a guardian advocate filed with the Circuit Court. [] Refusing to provide express and informed consent to voluntary admission but is competent to provide express and informed consent for treatment. The person must be discharged or transferred to involuntary status. Form shall be completed within 24 hours of a person's arrival at the receiving facility and filed in the clinical record of each person: 1. Admitted on a voluntary basis 2. Permitted to provide express and informed consent to his/her own treatment 3. Allowed to transfer from involuntary to voluntary status 4. Prior to permitting a person to consent to his or her own treatment after having been previously found incompetent to consent to treatment. History of Present Illness Capacity: Lacks Capacity Psych Chief Complaint: Dementia HPI From Dr. Roberts's H&P: The patient is an 81-year-old white man, he reports that he lives alone has no family, supported by Social Security, single, he denies previous psychiatric history, no psychiatric hospitalizations, no suicidal attempts, with no past medical history who presented with altered mental status. Patient was initially very agitated and aggressive in the ER. Patient was sedated with Ativan IM by ER physician. Per Dr. Vann patient was [place] wandering [place]. The police brought him in voluntarily basis initially. But, he was Jiménez acted posteriorly. Chart was reviewed. Case discussed with nurse in charge and PA Ms. Galaviz. On psychiatric evaluation patient is found calm, superficially cooperative, pleasantly disoriented and confused. He is malodorous, dirty, visibly self neglected. Patient says that he doesn't know what she is doing here. He does not know the reason he was brought to the hospital. Patient is unable to clarify were his living, or who is living with. He says that he wants to go home, but he doesn't know his address. At the beginning he says that he is [place], but minutes later he says that he lives in [place]. He reports good mood, he says that he is happy, denies suicidal and homicidal ideation, he denies visual and auditory hallucinations. Patient is disoriented in time and place. Able to repeat 3 words, but unable to recall the and 5 minutes later. He is able to list the days of the week, but he cannot do it backwards. Cannot spell the word world in any way. As per nursing charge, now the patient is quiet and calm, but before he was agitated, aggressive, wanting to leave the hospital and very disorganized. On my exam today: Patient seen and examined with nurse. Chart reviewed. Case discussed with nursing staff. On my examination today, the patient presents as confused and disoriented. He tells me "I've come to this part of the state 2 or 3 times." He denies any mood symptoms. He denies any audiovisual hallucinations. I can elicit no delusional material. He denies any suicidal or homicidal ideation. He is presently calm. He denies a history of psychiatric treatment. He denies any family history of mental illness. He denies any chemical dependency history. He reports that he lives in a house alone. He is single. He has a daughter who lives in [place]. He has a 12th grade education. He served in the [employer] for 4 years prior to the [place] conflict and never saw combat. He had an honorable discharge. The patient has a large inguinal hernia and is reportedly incontinent as a result. No other physical complaints. Review of Systems ROS Limitations: Poor Historian Except as stated in HPI: all other systems reviewed are Neg Past Psych History Psychological trauma history No reported trauma history to me Violence risk - others (6 mos) Low imminent risk Violence risk - self (6 mos) Concern for self-care deficit Substance Abuse History Drugs/Alcohol past 12 months See above Past Family Social History Coded Allergies: No Known Allergies (Verified Allergy, Unknown, 09/30/17) Past Medical History See electronic medical record Active Scripts Cholecalciferol (Gnp Vitamin D3 Extra Stre) 1,000 Unit Tab, 1000 UNITS PO DAILY for Low Vitamin D, #30 TAB Prov:Nico Quinn MD 10/02/17 Potassium Chloride ER (Klor-Con 10) 10 Meq Tab, 10 MEQ PO DAILY for Low Potassium, #5 TAB Prov:Nico Quinn MD 10/02/[address] (Aspirin DR) 81 Mg Tabdr, 81 MG PO DAILY for Blood Clot Prevention, # 30 TAB Prov:Nico Quinn MD 10/02/17 Reported Medications Multiple Vitamin (Multivitamin) 1 Tab Tab, 1 TAB PO DAILY 07/31/09 Discontinued Reported Medications Ferrous Sulfate (Ferrous Sulfate) 325 Mg Tab, 325 MG PO BID 07/31/09 Pantoprazole Sod (Protonix) 40 Mg Tabdr, 40 MG PO DAILY 07/31/09 Miscellaneous (No Current Meds) Misc 07/27/09 Current Medications Medications (Trade) Dose Ordered Sig/Manish Route Start Time Stop Time Status Last Admin (Ativan) 0.5 mg Q12H PRN PO 10/01/17 17:45 (Ativan Inj) 0.5 mg Q12H PRN IM 10/01/17 17:45 (Benadryl) 50 mg HS PRN PO 10/01/17 17:45 10/01/17 21:26 (Tylenol) 650 mg Q4H PRN PO 10/01/17 17:45 (Milk Of Magnesia Liq) 30 ml DAILY PRN PO 10/01/17 17:45 (Mag-Al Plus Susp Liq) 30 ml Q6H PRN PO 10/01/17 17:45 (SEROquel) 12.5 mg BID PO 10/01/17 21:00 10/02/17 08:13 (Pill Splitter) 1 ea UNSCH PRN OTHER 10/01/17 18:00 (KCl) 10 meq DAILY PO 10/03/17 09:00 10/06/17 23:00 (Vitamin D3) 1,000 units DAILY PO 10/03/17 09:00 (Ecotrin Ec) 81 mg DAILY PO 10/03/17 09:00 Family Psych History See above Social History See above Patient's Strengths (min. 2) In a monitored setting. Verbally fluent. Physical Exam Physical exam completed by hospitalist outbound sales consultant. On my examination today, the patient appears to be in no acute physical distress. He does have the hernia as I said. No motor abnormalities noted. Labs and vitals reviewed: Vital Signs Vital Signs Date Time Temp Pulse Resp B/P (MAP) Pulse Ox O2 Delivery O2 Flow Rate FiO2 10/02/17 06:17 98.2 59 17 112/53 (72) 98 I/O 10/02/17 10/02/17 10/03/17 08:00 16:00 00:00 Intake Total 240 ml 240 ml Balance 240 ml 240 ml Lab Results Item Value Date Time White Blood Count 8.7 TH/MM3 09/30/17 0750 Hemoglobin 12.8 GM/DL L 09/30/17 0750 Platelet Count 221 TH/MM3 09/30/17 0750 Sodium Level 139 MEQ/L 10/02/17 0840 Potassium Level 3.3 MEQ/L L 10/02/17 0840 Chloride Level 102 MEQ/L 10/02/17 0840 Carbon Dioxide Level 27.6 MEQ/L 10/02/17 0840 Blood Urea Nitrogen 17 MG/DL 10/02/17 0840 Creatinine 0.94 MG/DL 10/02/17 0840 Estimat Glomerular Filtration Rate 77 ML/MIN L 10/02/17 0840 Random Glucose 97 MG/DL 10/02/17 0840 Hemoglobin A1c 5.6 % 10/02/17 0849 Aspartate Amino Transf (AST/SGOT) 28 U/L 09/30/17 0750 Alanine Aminotransferase (ALT/SGPT) 23 U/L 09/30/17 0750 Alkaline Phosphatase 63 U/L 09/30/17 0750 Total Creatine Kinase 42 U/L 07/27/09 0650 Vitamin B12 Level 195 PG/ML 10/02/17 0849 25-Hydroxy Vitamin D Total 21.0 ng/ML L 10/02/17 0849 Thyroid Stimulating Hormone 3rd Gen 2.310 uIU/ML 10/02/17 0840 Urine Opiates Screen NEG 09/30/17 0855 Urine Barbiturates Screen NEG 09/30/17 0855 Urine Amphetamines Screen NEG 09/30/17 0855 Urine Benzodiazepines Screen NEG 09/30/17 0855 Urine Cocaine Screen NEG 09/30/17 0855 Urine Cannabinoids Screen NEG 09/30/17 0855 Ethyl Alcohol Level LESS THAN 3 MG/DL 09/30/17 0750 Hypokalemia noted. Vitamin D level somewhat low. EKG read as sinus rhythm with a QTcH of 417 ms. Mental Status Examination Appearance: Disheveled Consciousness: Alert Orientation: Person Motor Activity: Normal gait, Other (no motor abnormalities noted) Speech: Unremarkable Language: Other (somewhat rambling and repetitive) Fund of Knowledge: Adequate Attention and Concentration: Inadequate Memory: Impaired Mood: Appropriate Affect: Appropriate Thought Process & Associations: Other (slowed) Thought Content: Other (some poverty of thought) Hallucination Type: None Delusion Type: None Suicidal Ideation: No Suicidal Plan: No Suicidal Intention: No Homicidal Ideation: No Homicidal Plan: No Homicidal Intention: No Insight: Poor Judgment: Poor Mental Status Exam Remarks Registration is 3 out of 3 and recall is 0 out of 3 at 3 minutes. He is oriented to person only. He is able to spell world forward but not backwards. He is unable to name 2 objects. He is able to repeat a phrase. He is unsure who the president is. Assessment & Plan Problem List: (1) Dementia with behavioral disturbance ICD Codes: F03.91 - Unspecified dementia with behavioral disturbance Assessment & Plan 82-year-old male with psychiatric history as detailed above who is presently admitted to the inpatient psychiatric unit under a Jiménez act. On my examination today, the patient remains confused but is presently calm. There is concern for self-care deficit. The patient requires psychiatric admission at this time for safety and observation. Admit inpatient. Involuntary status. I have completed first opinion. Consult for second opinion. Request healthcare surrogate and guardian advocate. Hospitalist input noted and appreciated. Physical therapy consulted and occupational therapy consultation has been requested. Continue Seroquel as ordered. Discontinue Ativan. Replace Benadryl as needed for sleep with melatonin. Vitals every shift. Counselor to see and obtain collateral. Disposition planning. Estimated length of stay: 5-7 days. Discharge Planning Pending outcome of observation Request HC Surrog/Guard Advoc?: Yes Problem Qualifiers (1) Dementia with behavioral disturbance: Qualified Codes: F03.91 - Unspecified dementia with behavioral disturbance Gómez Blanco MD Oct 02, 2017 15:04
[2017-10-02 18:12] VITALS: BP 143/70; PULSE 94; RESP 18; TEMP 98.3; O2SAT 97
[2017-10-03 05:58] VITALS: BP 111/55; PULSE 75; RESP 14; TEMP 97.7; O2SAT 95
[2017-10-03] MEDS: QUEtiapine FUMARATE 25 MG TAB PO SCH ×2 (08:34→21:00)
[2017-10-03] MEDS: POTASSIUM CHLORIDE 10 MEQ CONTROLLED RELEASE TAB PO SCH (08:34)
[2017-10-03] MEDS: CHOLECALCIFEROL (VIT D3) 1000 UNIT TAB PO SCH (08:35)
[2017-10-03] MEDS: ASPIRIN EC 81 MG TABEC PO SCH (08:36)
--- NOTE | 2017-10-03 14:31 | EKG ---
Date Performed: 10/02/2017 Time Performed: 10:39:07 PTAGE: 81 years EKG: Sinus rhythm MARKED LEFT AXIS DEVIATION Nonspecific lateral T wave abnormality improved from the old tracing ABNO RMAL ECG PREVIOUS TRACING : 07/29/2009 13.19 DOCTOR: Hieu Bryson Interpretating Date/Time 10/03/2017 14:29:58
--- NOTE | 2017-10-03 14:55 | HHI.PYPN ---
Subjective Chief Complaint: Dementia Mental Status Examination Appearance: Disheveled Consciousness: Alert Orientation: Person Motor Activity: Normal gait, Other (no motor abnormalities noted) Speech: Unremarkable Language: Other (somewhat rambling and repetitive) Fund of Knowledge: Adequate Attention and Concentration: Inadequate Memory: Impaired Mood: Appropriate Affect: Appropriate Thought Process & Associations: Other (slowed) Thought Content: Other (some poverty of thought) Hallucination Type: None Delusion Type: None Suicidal Ideation: No Suicidal Plan: No Suicidal Intention: No Homicidal Ideation: No Homicidal Plan: No Homicidal Intention: No Insight: Poor Judgment: Poor Results Vitals/IOs Vital Signs Date Time Temp Pulse Resp B/P (MAP) Pulse Ox O2 Delivery O2 Flow Rate FiO2 10/03/17 05:58 97.7 75 14 111/55 (73 95 Assessment & Plan Problem List: (1) Dementia with behavioral disturbance ICD Codes: F03.91 - Unspecified dementia with behavioral disturbance Assessment & Plan Estimated LOS: days Request HC Surrog/Guard Advoc?: Yes Problem Qualifiers (1) Dementia with behavioral disturbance: Qualified Codes: F03.91 - Unspecified dementia with behavioral disturbance Denise Davis MD Oct 03, 2017 14:54
--- NOTE | 2017-10-03 19:04 | PD.PSY.CON ---
Provisional Diagnosis Admission Date Oct 01, 2017 at 14:22 Sutherlin I. 1. Dementia with behavioral disturbance Sutherlin II. Deferred History of Present Illness Service Psychiatry Consult Requested By Psychiatry Reason for Consult 2nd opinion Primary Care Physician No Primary Care Physician HPI Pt seen and discussed with staff. Chart reviewed. He is an 81 YOWM admitted to [facility] under a BA due to self neglect agitation and confusion. He has been confused but pleasant. He can provide no meaningful history. He is compliant with medications and tolerating without side effects. No aggression or agitation on the unit. Staff report pt is confused and requires redirection. He has been compliant with care. No SI/HI Past Family Social History Coded Allergies: No Known Allergies (Verified Allergy, Unknown, 09/30/17) Active Scripts Cholecalciferol (Gnp Vitamin D3 Extra Stre) 1,000 Unit Tab, 1000 UNITS PO DAILY for Low Vitamin D, #30 TAB Prov:Nico Quinn MD 10/02/17 Potassium Chloride ER (Klor-Con 10) 10 Meq Tab, 10 MEQ PO DAILY for Low Potassium, #5 TAB Prov:Nico Quinn MD 10/02/[address] (Aspirin DR) 81 Mg Tabdr, 81 MG PO DAILY for Blood Clot Prevention, # 30 TAB Prov:Nico Quinn MD 10/02/17 Reported Medications Multiple Vitamin (Multivitamin) 1 Tab Tab, 1 TAB PO DAILY 07/31/09 Discontinued Reported Medications Ferrous Sulfate (Ferrous Sulfate) 325 Mg Tab, 325 MG PO BID 07/31/09 Pantoprazole Sod (Protonix) 40 Mg Tabdr, 40 MG PO DAILY 07/31/09 Miscellaneous (No Current Meds) [facility] 07/27/09 Current Medications Medications (Trade) Dose Ordered Sig/Manish Route Start Time Stop Time Status Last Admin (Tylenol) 650 mg Q4H PRN PO 10/01/17 17:45 (Milk Of Magnesia Liq) 30 ml DAILY PRN PO 10/01/17 17:45 (Mag-Al Plus Susp Liq) 30 ml Q6H PRN PO 10/01/17 17:45 (SEROquel) 12.5 mg BID PO 10/01/17 21:00 10/03/17 08:34 (Pill Splitter) 1 ea UNSCH PRN OTHER 10/01/17 18:00 (KCl) 10 meq DAILY PO 10/03/17 09:00 10/06/17 23:00 10/03/17 08:34 (Vitamin D3) 1,000 units DAILY PO 10/03/17 09:00 10/03/17 08:35 (Ecotrin Ec) 81 mg DAILY PO 10/03/17 09:00 10/03/17 08:36 (Melatonin) 5 mg HS PRN PO 10/02/17 15:45 Patient's Strengths (min. 2) In a monitored setting. Verbally fluent. Physical Exam Vital Signs Vital Signs Date Time Temp Pulse Resp B/P (MAP) Pulse Ox O2 Delivery O2 Flow Rate FiO2 10/03/17 05:58 97.7 75 14 111/55 (73) 95 Mental Status Examination Appearance: Disheveled Consciousness: Alert Orientation: Person Motor Activity: Normal gait, Other (no motor abnormalities noted) Speech: Unremarkable Language: Other (somewhat rambling and repetitive) Fund of Knowledge: Adequate Attention and Concentration: Inadequate Memory: Impaired Mood: Appropriate Affect: Appropriate Thought Process & Associations: Other (slowed) Thought Content: Other (some poverty of thought) Hallucination Type: None Delusion Type: None Suicidal Ideation: No Suicidal Plan: No Suicidal Intention: No Homicidal Ideation: No Homicidal Plan: No Homicidal Intention: No Insight: Poor Judgment: Poor Assessment & Plan Problem List: (1) Dementia with behavioral disturbance ICD Codes: F03.91 - Unspecified dementia with behavioral disturbance Assessment & Plan I agree that pt meets criteria for involuntary hospitalization due to risk of self neglect due to cognitive dysfunction. Estimated LOS: days Request HC Surrog/Guard Advoc?: Yes Problem Qualifiers (1) Dementia with behavioral disturbance: Qualified Codes: F03.91 - Unspecified dementia with behavioral disturbance Denise Davis MD Oct 03, 2017 19:04
[2017-10-03] MEDS: MELATONIN 5 MG TAB PO PRN (21:00)
[2017-10-04 05:53] VITALS: BP 110/58; PULSE 62; RESP 16; TEMP 98.2; O2SAT 96
[2017-10-04] MEDS: POTASSIUM CHLORIDE 10 MEQ CONTROLLED RELEASE TAB PO SCH (09:03)
[2017-10-04] MEDS: ASPIRIN EC 81 MG TABEC PO SCH (09:04)
[2017-10-04] MEDS: CHOLECALCIFEROL (VIT D3) 1000 UNIT TAB PO SCH (09:04)
[2017-10-04] MEDS: QUEtiapine FUMARATE 25 MG TAB PO SCH ×2 (09:04→21:28)
--- NOTE | 2017-10-04 11:27 | HHI.PYPN ---
Subjective Chief Complaint: Dementia Remarks Patient seen and examined with nurse. Chart reviewed. Case discussed with nursing staff. On my examination today, the patient is confused. He is wandering around the unit with a bundle of linens soiled with urine. He is discharge focused. Insight into cognitive issues quite poor. No side effects from medications. No physical complaints. Review of Systems ROS Limitations: Poor Historian Mental Status Examination Appearance: Disheveled Consciousness: Alert Orientation: Person Motor Activity: Normal gait, Other (no abnormal motor movements noted) Speech: Unremarkable Language: Other (rambling) Fund of Knowledge: Adequate Attention and Concentration: Inadequate Memory: Impaired Mood: Irritable Affect: Irritable Thought Process & Associations: Other (perseverative) Thought Content: Other (some poverty of thought) Hallucination Type: None Delusion Type: None Suicidal Ideation: No Suicidal Plan: No Suicidal Intention: No Homicidal Ideation: No Homicidal Plan: No Homicidal Intention: No Insight: Poor Judgment: Poor Results Labs Labs reviewed Vitals/IOs Vital Signs Date Time Temp Pulse Resp B/P (MAP) Pulse Ox O2 Delivery O2 Flow Rate FiO2 10/04/17 05:53 98.2 62 16 110/58 (75) 96 Assessment & Plan Problem List: (1) Dementia with behavioral disturbance ICD Codes: F03.91 - Unspecified dementia with behavioral disturbance Assessment & Plan Titrate Seroquel to 25 mg twice daily to target behavioral disturbance in the setting of dementia. Continue to monitor on the inpatient unit. Continue other medications and care as ordered. Justification for Cont. Inpt. Impairment in self-care. High risk for decompensation in less restrictive environment. Discharge Planning To be determined Request HC Surrog/Guard Advoc?: Yes Problem Qualifiers (1) Dementia with behavioral disturbance: Qualified Codes: F03.91 - Unspecified dementia with behavioral disturbance Gómez Blanco MD Oct 04, 2017 11:27
[2017-10-04 17:00] VITALS: BP 103/59; PULSE 72; RESP 16; TEMP 98.9; O2SAT 97
[2017-10-04] MEDS: MELATONIN 5 MG TAB PO PRN (21:28)
[2017-10-05 06:46] VITALS: BP 102/54; PULSE 54; RESP 16; TEMP 97.3; O2SAT 96
[2017-10-05 07:55] LABS: BICARBONATE 32.6 MEQ/L (21.0-32.0); CREATININE 0.77 MG/DL (0.60-1.30)
[2017-10-05] MEDS: ASPIRIN EC 81 MG TABEC PO SCH (08:28)
[2017-10-05] MEDS: POTASSIUM CHLORIDE 10 MEQ CONTROLLED RELEASE TAB PO SCH (08:28)
[2017-10-05] MEDS: CHOLECALCIFEROL (VIT D3) 1000 UNIT TAB PO SCH (08:28)
[2017-10-05] MEDS: QUEtiapine FUMARATE 25 MG TAB PO SCH ×2 (08:28→20:55)
--- NOTE | 2017-10-05 09:37 | HHI.PYPN ---
Subjective Chief Complaint: Dementia Remarks Patient seen and examined. Chart reviewed. Case discussed with nurse he reports the patient has been pleasant but confused and working with physical therapy. Case discussed in treatment team. I have instructed the counselor to try to identify family or friends who might serve as sources of collateral information. On my examination today, the patient is oriented to person only. He is quite disheveled and malodorous, and I have instructed the nurse to ensure patient gets a shower. He is calm and pleasant. He tells me that he would like a shave. He also says that he usually eats a primarily raw food diet. Denies side effects from medications. No physical complaints. Review of Systems ROS Limitations: Poor Historian Except as stated in HPI: all other systems reviewed are Neg Mental Status Examination Appearance: Disheveled Consciousness: Alert Orientation: Person Motor Activity: Normal gait, Other (no motoric abnormalities noted) Speech: Unremarkable Language: Other (rambling) Fund of Knowledge: Adequate Attention and Concentration: Inadequate Memory: Impaired Mood: Other (calm) Affect: Euthymic Thought Process & Associations: Circumstantial Thought Content: Other (poverty of thought) Hallucination Type: None Delusion Type: None Suicidal Ideation: No Suicidal Plan: No Suicidal Intention: No Homicidal Ideation: No Homicidal Plan: No Homicidal Intention: No Insight: Poor Judgment: Poor Results Labs Test 10/05/17 06:55 Blood Urea Nitrogen 26 MG/DL Creatinine 0.77 MG/DL Random Glucose 85 MG/DL Calcium Level 9.0 MG/DL Sodium Level 141 MEQ/L Potassium Level 3.7 MEQ/L Chloride Level 105 MEQ/L Carbon Dioxide Level 32.6 MEQ/L Anion Gap 3 MEQ/L Estimat Glomerular Filtration Rate 97 ML/MIN Labs reviewed. Brain MRI from observation admission revealed bilateral cortical atrophy. Vitals/IOs Vital Signs Date Time Temp Pulse Resp B/P (MAP) Pulse Ox O2 Delivery O2 Flow Rate FiO2 10/05/17 06:46 97.3 54 16 102/54 (70) 96 Intake and Output 10/05/17 10/05/17 10/06/17 08:00 16:00 00:00 Intake Total 180 ml Balance 180 ml Assessment & Plan Problem List: (1) Dementia with behavioral disturbance ICD Codes: F03.91 - Unspecified dementia with behavioral disturbance Assessment & Plan Continue Seroquel 25mg BID for management of behavioral disturbance in setting of dementia. Patient's reported restricted dietary preferences prior to admission raise the specter of nutritional deficiency as a cause of his dementing illness. I will check thiamine, folate, B12. I will also check RPR and HIV as these were not done previously. Continue to monitor on inpatient unit. Continue other medications and care as ordered. Justification for Cont. Inpt. Impairment in self-care. High risk for decompensation in less restrictive setting. Discharge Planning TBD. Request HC Surrog/Guard Advoc?: Yes Problem Qualifiers (1) Dementia with behavioral disturbance: Qualified Codes: F03.91 - Unspecified dementia with behavioral disturbance Gómez Blanco MD Oct 05, 2017 09:37
[2017-10-05 15:56] LABS: FOLATE 14.5 NG/ML (3.1-17.5)
[2017-10-05] MEDS ORDERED: CYANOCOBALAMIN 1000 MCG/ML VIAL IM ONE (16:15)
[2017-10-05 18:32] VITALS: BP 113/84; PULSE 77; RESP 16; TEMP 98; O2SAT 96
[2017-10-05] MEDS: CYANOCOBALAMIN 1000 MCG/ML VIAL IM ONE ×2 (21:00→21:55)
[2017-10-06] MEDS ORDERED: LORazepam 2 MG/ML VIAL IM ONE (01:45)
[2017-10-06] MEDS ORDERED: diphenhydrAMINE HCL 50 MG/ML VIAL IM SCH (02:00)
[2017-10-06 06:00] VITALS: BP 112/59; PULSE 50; RESP 20; TEMP 97.4; O2SAT 96
[2017-10-06] MEDS: CYANOCOBALAMIN 1,000 MCG TAB PO SCH (09:00)
[2017-10-06] MEDS: ASPIRIN EC 81 MG TABEC PO SCH (09:00)
[2017-10-06] MEDS: QUEtiapine FUMARATE 25 MG TAB PO SCH (09:00)
[2017-10-06] MEDS: POTASSIUM CHLORIDE 10 MEQ CONTROLLED RELEASE TAB PO SCH (09:00)
[2017-10-06] MEDS: CHOLECALCIFEROL (VIT D3) 1000 UNIT TAB PO SCH (09:00)
--- NOTE | 2017-10-06 10:00 | HHI.PYPN ---
Subjective Chief Complaint: Dementia Remarks Patient seen and examined. Chart reviewed. Case discussed with nurse and counselor. Patient agitated overnight, received Ativan 1mg IM ETO. Patient is refusing oral medications. On my exam, patient remains quite confused. He is wandering around the unit and tells me brusquely that he has "things to do" but that we can walk and talk. Affect is irritable. Remains oriented to person only. No physical complaints. Curt Cowan, who says he is patient's caregiver, came on the unit yesterday evening and left his phone number. I have called Mr. Cowan back at . He reports that he has known patient for 14 years and has acted as patient's caregiver for ~4 years. He notes patient has had significant memory issues for 1.5 years but still was living independently in the home. He notes that patient is a "hoarder" and also a devotee of juicing and suggests that his diet might be more restricted now than it had been in the past. Mr. Cowan notes that he got the flu and was unable to check in on patient, who apparently drove off in his truck and got lost. He notes that the patient's only family is an estranged daughter in [place] who has had no contact with the patient in some time. Review of Systems ROS Limitations: Poor Historian Except as stated in HPI: all other systems reviewed are Neg Mental Status Examination Appearance: Disheveled Consciousness: Alert Orientation: Person Motor Activity: Normal gait, Other (no motoric abnormalities noted) Speech: Unremarkable Language: Other (remains rambling) Fund of Knowledge: Adequate Attention and Concentration: Inadequate Memory: Impaired Mood: Irritable Affect: Irritable Thought Process & Associations: Circumstantial Thought Content: Other (poverty of thought ongoing) Hallucination Type: None Delusion Type: None Suicidal Ideation: No Suicidal Plan: No Suicidal Intention: No Homicidal Ideation: No Homicidal Plan: No Homicidal Intention: No Insight: Poor Judgment: Poor Results Labs Item Value Date Time Vitamin B12 Level 184 PG/ML L 10/05/17 1435 Folate 14.5 NG/ML 10/05/17 1435 25-Hydroxy Vitamin D Total 21.0 ng/ML L 10/02/17 0849 Vitamin B12 Level 195 PG/ML 10/02/17 0849 Thyroid Stimulating Hormone 3rd Gen 2.310 uIU/ML 10/02/17 0840 Rapid Plasma Reagin NON-REACTIVE 10/05/17 1435 HIV (1&2) Antibody NEGATIVE 10/05/17 1435 Labs reviewed. Vitamin B12 level low. Vitamin D low. Dementia workup labs otherwise unremarkable. Vitals/IOs Vital Signs Date Time Temp Pulse Resp B/P (MAP) Pulse Ox O2 Delivery O2 Flow Rate FiO2 10/06/17 06:00 97.4 50 20 112/59 (76) 96 Assessment & Plan Problem List: (1) Dementia with behavioral disturbance ICD Codes: F03.91 - Unspecified dementia with behavioral disturbance Assessment & Plan D/c Seroquel. Start Zyprexa 2.5mg qHS PO/IM. Cyanocobalamin 1000mcg IM once, over patient objection if necessary with permission of HCS. Unclear if home with caregiver is in patient's best interests as I fear the circumstances which brought patient here could easily be repeated. I have spoke with OT who has grave concerns about patient's ability to function in the kind of environment described by Mr. Cowan. Given patient's cognitive impairment, I do not think he should be driving and have completed [facility] Medical Reporting Form. Continue to monitor on inpatient unit. Continue other medications and care as ordered. Justification for Cont. Inpt. Med changes. High risk for decompensation in less restrictive setting. Discharge Planning Pending outcome of [address] tomorrow. Request HC Surrog/Guard Advoc?: Yes Problem Qualifiers (1) Dementia with behavioral disturbance: Qualified Codes: F03.91 - Unspecified dementia with behavioral disturbance Gómez Blanco MD Oct 06, 2017 10:00
[2017-10-06] MEDS ORDERED: CYANOCOBALAMIN 1000 MCG/ML VIAL IM ONE ×2 (12:45→15:30)
[2017-10-06] MEDS ORDERED: OLANZapine IM 10 MG VIAL IM PRN (12:45)
[2017-10-06 18:00] VITALS: BP 120/69; PULSE 66; RESP 17; O2SAT 96
[2017-10-06] MEDS: OLANZapine 2.5 MG TAB PO SCH (19:54)
[2017-10-06] MEDS: MELATONIN 5 MG TAB PO PRN (19:55)
[2017-10-07 06:02] VITALS: BP 129/67; PULSE 62; RESP 20; TEMP 97.5; O2SAT 95
[2017-10-07] MEDS: ASPIRIN EC 81 MG TABEC PO SCH (07:55)
[2017-10-07] MEDS: CHOLECALCIFEROL (VIT D3) 1000 UNIT TAB PO SCH (07:55)
[2017-10-07] MEDS: CYANOCOBALAMIN 1,000 MCG TAB PO SCH (07:55)
--- NOTE | 2017-10-07 11:22 | HHI.PYPN ---
Subjective Chief Complaint: Dementia Remarks Patient seen and case discussed with nursing staff. Chart reviewed. Patient did accept Zyprexa PO and got Vitamin B12 injection. Per nursing staff, patient confused and discharge focused but not aggressive or otherwise a behavioral problem. For me today, patient is indeed confused and discharge focused. Speech is rambling. He is presently calm. No side effects from medications. No physical complaints. Patient's sister Corina was present for court this morning and has been appointed HCS. She reports that patient's memory has been declining for several years. She reports his living conditions are poor. She reiterates that the patient has a quite restricted diet. She is supportive of having the patient placed. Review of Systems ROS Limitations: Poor Historian Other Limited ROS today Mental Status Examination Appearance: Disheveled Consciousness: Alert Orientation: Person Motor Activity: Other (No abnormal motor movements noted) Speech: Unremarkable Language: Other (remains rambling) Fund of Knowledge: Adequate Attention and Concentration: Inadequate Memory: Impaired Mood: Irritable Affect: Irritable Thought Process & Associations: Circumstantial Thought Content: Other (poverty of thought ongoing) Hallucination Type: None Delusion Type: None Suicidal Ideation: No Suicidal Plan: No Suicidal Intention: No Homicidal Ideation: No Homicidal Plan: No Homicidal Intention: No Insight: Poor Judgment: Poor Results Labs Labs reviewed. Serologies negative. Item Value Date Time HIV (1&2) Antibody NEGATIVE 10/05/17 1435 Rapid Plasma Reagin NON-REACTIVE 10/05/17 1435 Vitals/IOs Vital Signs Date Time Temp Pulse Resp B/P (MAP) Pulse Ox O2 Delivery O2 Flow Rate FiO2 10/07/17 06:02 97.5 62 20 129/67 (87) 95 Intake and Output 10/07/17 10/07/17 10/08/17 08:00 16:00 00:00 Intake Total 720 ml Balance 720 ml Assessment & Plan Problem List: (1) Dementia with behavioral disturbance ICD Codes: F03.91 - Unspecified dementia with behavioral disturbance Assessment & Plan Continue Zyprexa 2.5mg qHS. Continue to monitor on geropsychiatric unit. Follow up thiamine level. Continue other medications and care as ordered. Justification for Cont. Inpt. Impairment in self-care. High risk for decompensation in less restrictive environment. Discharge Planning Placement. Case discussed with counselor. Request HC Surrog/Guard Advoc?: Yes Problem Qualifiers (1) Dementia with behavioral disturbance: Qualified Codes: F03.91 - Unspecified dementia with behavioral disturbance Gómez Blanco MD Oct 07, 2017 11:22
[2017-10-07 18:00] VITALS: BP 121/57; PULSE 68; RESP 18; TEMP 97.9; O2SAT 97
[2017-10-07] MEDS: MELATONIN 5 MG TAB PO PRN (20:50)
[2017-10-07] MEDS: OLANZapine 2.5 MG TAB PO SCH (20:50)
[2017-10-08 05:46] VITALS: BP 111/57; PULSE 54; RESP 20; TEMP 97.7; O2SAT 92
[2017-10-08] MEDS: CHOLECALCIFEROL (VIT D3) 1000 UNIT TAB PO SCH (08:55)
[2017-10-08] MEDS: ASPIRIN EC 81 MG TABEC PO SCH (08:55)
[2017-10-08] MEDS: CYANOCOBALAMIN 1,000 MCG TAB PO SCH (08:55)
--- NOTE | 2017-10-08 09:40 | PD.TTN ---
Patient Problems 1. Discharge planning 2. Medication compliance 3. Knowledge deficit 4. Lack of coping skills Progress Toward Goals Provider Present: Dr. Florentino Blanco Provider Input: 10/08/2017 - Dr. Blanco requested that this counselor initiate search for appropriate placement. Patient has a B12 deficiency and has received a B12 injection. Dr. Blanco has started the patient on Zyprexa. Psychiatric Counselors Present: JORGE Chavarria Psych Therapist Input: 10/08/2017 - Patient was retained in court yesterday and counselor will initiate search for placement today. Group Spec/RT/OT/CHATMAN Present: LURDES Griffiths Group Spec/RT/OT/CHATMAN Input: 10/08/2017 - Patient is not participating ni groups or activities. Discharge Plan SMA Patient will be discharged to an appropriate [facility] upon discharge. Documentation Scribe: JORGE Chavarria Date Resolved: Oct 08, 2017 Ria Escalera Oct 08, 2017 09:40
--- NOTE | 2017-10-08 14:42 | HHI.PYPN ---
Subjective Chief Complaint: Dementia Remarks Patient seen and examined with nurse. Chart reviewed. Case discussed with nurse and in treatment team. No behavioral issues noted. On my examination today, the patient knows that it is his birthday. He remains confused otherwise , as at recent baseline. He speaks in a rambling and vague fashion about needing to get some property in order. Presently calm. No psychosis. No side effects from medications. No physical complaints. Review of Systems ROS Limitations: Poor Historian Except as stated in HPI: all other systems reviewed are Neg Mental Status Examination Appearance: Disheveled, Malodorous Consciousness: Alert Orientation: Person Motor Activity: Other (no motoric abnormalities noted) Speech: Unremarkable Language: Other (rambling) Fund of Knowledge: Adequate Attention and Concentration: Inadequate Memory: Impaired Mood: Appropriate Affect: Appropriate Thought Process & Associations: Circumstantial Thought Content: Other (ongoing poverty of thought) Hallucination Type: None Delusion Type: None Suicidal Ideation: No Suicidal Plan: No Suicidal Intention: No Homicidal Ideation: No Homicidal Plan: No Homicidal Intention: No Insight: Poor Judgment: Poor Results Labs Labs reviewed. Thiamine level within reference range. Vitals/IOs Vital Signs Date Time Temp Pulse Resp B/P (MAP) Pulse Ox O2 Delivery O2 Flow Rate FiO2 10/08/17 05:46 97.7 54 20 111/57 (75) 92 Intake and Output 10/08/17 10/08/17 10/09/17 08:00 16:00 00:00 Intake Total 360 ml Balance 360 ml Assessment & Plan Problem List: (1) Dementia with behavioral disturbance ICD Codes: F03.91 - Unspecified dementia with behavioral disturbance Assessment & Plan Continue Zyprexa as ordered. Continue cyanocobalamin for vitamin B12 deficiency with plans to check and updated vitamin B12 level next week. Continue to monitor on the geropsychiatric unit. Continue other medications and care as ordered. Justification for Cont. Inpt. Risk for decompensation in less restrictive environment. Discharge Planning Counselor working on placement. Request HC Surrog/Guard Advoc?: Yes Problem Qualifiers (1) Dementia with behavioral disturbance: Qualified Codes: F03.91 - Unspecified dementia with behavioral disturbance Gómez Blanco MD Oct 08, 2017 14:42
[2017-10-08 18:15] VITALS: BP 112/56; PULSE 64; RESP 18; TEMP 98; O2SAT 94
[2017-10-08] MEDS: OLANZapine 2.5 MG TAB PO SCH (20:54)
[2017-10-08] MEDS: MELATONIN 5 MG TAB PO PRN (20:54)
[2017-10-09 06:11] VITALS: BP 109/55; PULSE 52; RESP 16; TEMP 98.3; O2SAT 94
[2017-10-09] MEDS: CYANOCOBALAMIN 1,000 MCG TAB PO SCH (09:03)
[2017-10-09] MEDS: CHOLECALCIFEROL (VIT D3) 1000 UNIT TAB PO SCH (09:04)
[2017-10-09] MEDS: ASPIRIN EC 81 MG TABEC PO SCH (09:04)
--- NOTE | 2017-10-09 16:40 | HHI.PYPN ---
Subjective Chief Complaint: Dementia Remarks Patient was seen and case discussed with nursing. Patient is alert and oriented 1. Pleasantly confused. Tangential thought process. Eating and sleeping well per nursing. Tolerating medications well. Behaving well on the unit Mental Status Examination Appearance: Disheveled, Malodorous Consciousness: Alert Orientation: Person Motor Activity: Other (no motoric abnormalities noted) Speech: Unremarkable Language: Other (rambling) Fund of Knowledge: Adequate Attention and Concentration: Inadequate Memory: Impaired Mood: Appropriate Affect: Appropriate Thought Process & Associations: Tangential Thought Content: Other (ongoing poverty of thought) Hallucination Type: None Delusion Type: None Suicidal Ideation: No Suicidal Plan: No Suicidal Intention: No Homicidal Ideation: No Homicidal Plan: No Homicidal Intention: No Insight: Poor Judgment: Poor Results Vitals/IOs Vital Signs Date Time Temp Pulse Resp B/P (MAP) Pulse Ox O2 Delivery O2 Flow Rate FiO2 10/09/17 06:11 98.3 52 16 109/55 (73) 94 Intake and Output 10/09/17 10/09/17 10/10/17 08:00 16:00 00:00 Intake Total 0 ml Balance 0 ml Assessment & Plan Problem List: (1) Dementia with behavioral disturbance ICD Codes: F03.91 - Unspecified dementia with behavioral disturbance Assessment & Plan Continue current treatment plan Justification for Cont. Inpt. Patient will decompensate in a less restrictive setting Request HC Surrog/Guard Advoc?: Yes Problem Qualifiers (1) Dementia with behavioral disturbance: Qualified Codes: F03.91 - Unspecified dementia with behavioral disturbance Sanket Madrigal DO Oct 09, 2017 16:40
[2017-10-09 18:13] VITALS: BP 132/63; PULSE 65; RESP 18; TEMP 97.5; O2SAT 92
[2017-10-09] MEDS: OLANZapine 2.5 MG TAB PO SCH (20:41)
[2017-10-10 06:00] VITALS: BP 119/56; PULSE 53; RESP 16; TEMP 97.6; O2SAT 95
[2017-10-10] MEDS: CYANOCOBALAMIN 1,000 MCG TAB PO SCH (08:26)
[2017-10-10] MEDS: ASPIRIN EC 81 MG TABEC PO SCH (08:26)
[2017-10-10] MEDS: CHOLECALCIFEROL (VIT D3) 1000 UNIT TAB PO SCH (08:26)
--- NOTE | 2017-10-10 15:36 | HHI.PYPN ---
Subjective Chief Complaint: Dementia Remarks Patient was seen and case discussed with nursing. is alert and oriented 1.'s pleasant and cooperative during the exam. He is quite social and having a pleasant conversation with the staff. Believes he is in a hotel. He denies any psychotic symptoms. Tolerating his medications well. No aggressive behavior Mental Status Examination Appearance: Disheveled, Malodorous Consciousness: Alert Orientation: Person Motor Activity: Other (no motoric abnormalities noted) Speech: Unremarkable Language: Other (rambling) Fund of Knowledge: Adequate Attention and Concentration: Inadequate Memory: Impaired Mood: Appropriate Affect: Appropriate Thought Process & Associations: Tangential Thought Content: Other (ongoing poverty of thought) Hallucination Type: None Delusion Type: None Suicidal Ideation: No Suicidal Plan: No Suicidal Intention: No Homicidal Ideation: No Homicidal Plan: No Homicidal Intention: No Insight: Poor Judgment: Poor Results Vitals/IOs Vital Signs Date Time Temp Pulse Resp B/P (MAP) Pulse Ox O2 Delivery O2 Flow Rate FiO2 10/10/17 06:00 97.6 53 16 119/56 (77) 95 Intake and Output 10/10/17 10/10/17 10/11/17 08:00 16:00 00:00 Intake Total 0 ml 240 ml Balance 0 ml 240 ml Assessment & Plan Problem List: (1) Dementia with behavioral disturbance ICD Codes: F03.91 - Unspecified dementia with behavioral disturbance Assessment & Plan Continue current treatment plan Justification for Cont. Inpt. Patient will decompensate in a less restrictive setting Request HC Surrog/Guard Advoc?: Yes Problem Qualifiers (1) Dementia with behavioral disturbance: Qualified Codes: F03.91 - Unspecified dementia with behavioral disturbance Sanket Madrigal DO Oct 10, 2017 15:36
[2017-10-10 18:08] VITALS: BP 114/55; PULSE 68; RESP 18; TEMP 98.3; O2SAT 93
[2017-10-10] MEDS: OLANZapine 2.5 MG TAB PO SCH (20:54)
[2017-10-11 05:29] VITALS: BP 102/54; PULSE 63; RESP 16; TEMP 97.5; O2SAT 96
[2017-10-11] MEDS: CHOLECALCIFEROL (VIT D3) 1000 UNIT TAB PO SCH (09:00)
[2017-10-11] MEDS: CYANOCOBALAMIN 1,000 MCG TAB PO SCH (09:50)
[2017-10-11] MEDS: ASPIRIN EC 81 MG TABEC PO SCH (09:50)
--- NOTE | 2017-10-11 14:39 | HHI.PYPN ---
Subjective Chief Complaint: Dementia Remarks Patient seen and examined. Chart reviewed. Case discussed with nursing staff reports no behavioral issues overnight. Patient reportedly slept only 4 hours overnight but was no behavioral issue. On my examination today, the patient seems more relevant in conversation. He does remain confused. Affect is euthymic. No SI or HI voiced. Denies side effects from medications. No physical complaints. Review of Systems ROS Limitations: Poor Historian Except as stated in HPI: all other systems reviewed are Neg Mental Status Examination Appearance: Disheveled, Malodorous Consciousness: Alert Orientation: Person (person only) Motor Activity: Other (no abnormal motor movements noted) Speech: Unremarkable Language: Other (rambling) Fund of Knowledge: Adequate Attention and Concentration: Inadequate Memory: Impaired Mood: Appropriate Affect: Appropriate, Euthymic Thought Process & Associations: Circumstantial Thought Content: Other (some poverty of thought) Hallucination Type: None Delusion Type: None Suicidal Ideation: No Suicidal Plan: No Suicidal Intention: No Homicidal Ideation: No Homicidal Plan: No Homicidal Intention: No Insight: Poor Judgment: Poor Results Labs Labs reviewed. No new labs. Vitals/IOs Vital Signs Date Time Temp Pulse Resp B/P (MAP) Pulse Ox O2 Delivery O2 Flow Rate FiO2 10/11/17 05:29 97.5 63 16 102/54 (70) 96 Intake and Output 10/11/17 10/11/17 10/12/17 08:00 16:00 00:00 Intake Total 480 ml Balance 480 ml Assessment & Plan Problem List: (1) Dementia with behavioral disturbance ICD Codes: F03.91 - Unspecified dementia with behavioral disturbance Assessment & Plan Continue Zyprexa as ordered. We could consider adjusting patient's hypnotics to increase the duration of sleep, but since he is no behavioral disturbance during this time, I think the potential risks from adding additional hypnotic outweigh the benefits and so will make no change at this time. Continue to monitor on the inpatient unit. Continue other medications and care as ordered. Justification for Cont. Inpt. Risk for decompensation in less restrictive environment. Discharge Planning Counselor is working on placement. Request HC Surrog/Guard Advoc?: Yes Problem Qualifiers (1) Dementia with behavioral disturbance: Qualified Codes: F03.91 - Unspecified dementia with behavioral disturbance Gómez Blanco MD Oct 11, 2017 14:39
[2017-10-11 17:00] VITALS: BP 100/52; PULSE 64; RESP 16; TEMP 98.4; O2SAT 94
[2017-10-11] MEDS: MELATONIN 5 MG TAB PO PRN (20:49)
[2017-10-11] MEDS: OLANZapine 2.5 MG TAB PO SCH (20:49)
[2017-10-12 06:11] VITALS: BP 108/56; PULSE 53; RESP 18; TEMP 97; O2SAT 96
[2017-10-12] MEDS: ASPIRIN EC 81 MG TABEC PO SCH (08:39)
[2017-10-12] MEDS: CYANOCOBALAMIN 1,000 MCG TAB PO SCH (08:41)
[2017-10-12] MEDS: CHOLECALCIFEROL (VIT D3) 1000 UNIT TAB PO SCH (09:00)
--- NOTE | 2017-10-12 09:30 | HHI.PYPN ---
Subjective Chief Complaint: Dementia Remarks Patient seen and examined. Chart reviewed. Case discussed with nurse. Case discussed in treatment team. Occupational therapist notes that the patient has improved hygiene and is less oppositional on the unit. On my examination today , patient is calm and pleasant. He is in good spirits. He is more sociable and conversant and he was earlier this admission. Denies side effects from medications. No physical complaints. MMSE today 08/02. Review of Systems ROS Limitations: Poor Historian Except as stated in HPI: all other systems reviewed are Neg Mental Status Examination Appearance: Disheveled (grooming somewhat improved versus admission) Consciousness: Alert Orientation: Person (remains to person only) Motor Activity: Other (no abnormal motor movements appreciated) Speech: Unremarkable Language: Other (rambling) Fund of Knowledge: Adequate Attention and Concentration: Inadequate Memory: Impaired Mood: Appropriate Affect: Appropriate, Euthymic Thought Process & Associations: Circumstantial Thought Content: Other (ongoing poverty of thought) Hallucination Type: None Delusion Type: None Suicidal Ideation: No Suicidal Plan: No Suicidal Intention: No Homicidal Ideation: No Homicidal Plan: No Homicidal Intention: No Insight: Poor Judgment: Poor Results Labs Item Value Date Time Vitamin B12 Level 565 PG/ML 10/12/17 0834 Repeat vitamin B12 level within normal limits. Vitals/IOs Vital Signs Date Time Temp Pulse Resp B/P (MAP) Pulse Ox O2 Delivery O2 Flow Rate FiO2 10/12/17 06:11 97.0 53 18 108/56 (73) 96 Intake and Output 10/12/17 10/12/17 10/13/17 08:00 16:00 00:00 Intake Total 480 ml Balance 480 ml Assessment & Plan Problem List: (1) Dementia with behavioral disturbance ICD Codes: F03.91 - Unspecified dementia with behavioral disturbance Assessment & Plan Continue Zyprexa as ordered. Now that B12 has been repleted, taper dose to 100mcg/day. Continue to monitor on an inpatient unit. Continue other medications and care as ordered. Justification for Cont. Inpt. High risk for decompensation in less restrictive environment Discharge Planning Placement. Case discussed with counselor. Request HC Surrog/Guard Advoc?: Yes Problem Qualifiers (1) Dementia with behavioral disturbance: Qualified Codes: F03.91 - Unspecified dementia with behavioral disturbance Gómez Blanco MD Oct 12, 2017 09:30
--- NOTE | 2017-10-12 09:34 | PD.TTN ---
Patient Problems 1. Discharge planning 2. Medication compliance 3. Knowledge deficit 4. Lack of coping skills Progress Toward Goals Provider Present: Dr. Florentino Blanco Provider Input: 10/12/2017 - There have been no medication adjustments in recent days and patient remains on B12. 10/08/2017 - Dr. Blanco requested that this counselor initiate search for appropriate placement. Patient has a B12 deficiency and has received a B12 injection. Dr. Blanco has started the patient on Zyprexa. Psychiatric Counselors Present: JORGE Chavarria Psych Therapist Input: 10/12/2017 - Patient remains pleasently confused. Counselor spoke to patient's sister yesterday to discuss placement options. Patient's packet has been [facility] to [facility] for admissions review. 10/08/2017 - Patient was retained in court yesterday and counselor will initiate search for placement today. Group Spec/RT/OT/CHATMAN Present: LURDES Griffiths Group Spec/RT/OT/CHATMAN Input: 10/12/2017 - Patient appears less agitated and more hygenic. 10/08/2017 - Patient is not participating ni groups or activities. Discharge Plan SMA Patient will be discharged to an appropriate [facility] upon discharge. Documentation Scribe: JORGE Chavarria Date Resolved: Oct 12, 2017 Ria Escalera Oct 12, 2017 09:34
[2017-10-12 17:18] VITALS: BP 134/61; PULSE 71; RESP 18; TEMP 97.2; O2SAT 98
[2017-10-12] MEDS: OLANZapine 2.5 MG TAB PO SCH (20:09)
[2017-10-12] MEDS: MELATONIN 5 MG TAB PO PRN (20:09)
[2017-10-13 06:06] VITALS: BP 106/56; PULSE 57; RESP 17; TEMP 98.1; O2SAT 96
[2017-10-13] MEDS: CHOLECALCIFEROL (VIT D3) 1000 UNIT TAB PO SCH (09:30)
[2017-10-13] MEDS: CYANOCOBALAMIN 100 MCG TAB PO SCH (09:30)
[2017-10-13] MEDS: ASPIRIN EC 81 MG TABEC PO SCH (09:30)
--- NOTE | 2017-10-13 15:25 | HHI.PYPN ---
Subjective Chief Complaint: Dementia Remarks Patient seen and examined. Chart reviewed. Case discussed with nursing staff. No behavioral issues noted overnight. Patient is eating 100% of meals and slept 8 hours last night. On my examination today, the patient is in good spirits. He remains confused is at baseline. No mood or psychotic symptoms noted. No side effects from medications. No physical complaints. Review of Systems ROS Limitations: Poor Historian Except as stated in HPI: all other systems reviewed are Neg Mental Status Examination Appearance: Other (Fair grooming) Consciousness: Alert Orientation: Person (remains to person only) Motor Activity: Other (no motoric abnormalities noted) Speech: Unremarkable Language: Other (remains a little rambling) Fund of Knowledge: Adequate Attention and Concentration: Inadequate Memory: Impaired Mood: Appropriate Affect: Appropriate, Euthymic Thought Process & Associations: Circumstantial Thought Content: Other (poverty of thought) Hallucination Type: None Delusion Type: None Suicidal Ideation: No Suicidal Plan: No Suicidal Intention: No Homicidal Ideation: No Homicidal Plan: No Homicidal Intention: No Insight: Poor Judgment: Poor Results Labs Labs reviewed Vitals/IOs Vital Signs Date Time Temp Pulse Resp B/P (MAP) Pulse Ox O2 Delivery O2 Flow Rate FiO2 10/13/17 06:06 98.1 57 17 106/56 (73) 96 Assessment & Plan Problem List: (1) Dementia with behavioral disturbance ICD Codes: F03.91 - Unspecified dementia with behavioral disturbance Assessment & Plan Continue Zyprexa as ordered. Continue to monitor on the inpatient unit. Continue other medications and care as ordered. Case signed out to Dr. Mcguire. Justification for Cont. Inpt. Risk for decompensation in less restrictive environment Discharge Planning Counselor working on placement Request HC Surrog/Guard Advoc?: Yes Problem Qualifiers (1) Dementia with behavioral disturbance: Qualified Codes: F03.91 - Unspecified dementia with behavioral disturbance Gómez Blanco MD Oct 13, 2017 15:25
[2017-10-13 18:00] VITALS: BP 99/55; PULSE 68; RESP 16; TEMP 98.2; O2SAT 99
[2017-10-13] MEDS: MELATONIN 5 MG TAB PO PRN (21:14)
[2017-10-13] MEDS: OLANZapine 2.5 MG TAB PO SCH (21:14)
[2017-10-14 05:50] VITALS: BP 97/50; PULSE 54; RESP 18; TEMP 97.8; O2SAT 97
[2017-10-14] MEDS: CYANOCOBALAMIN 100 MCG TAB PO SCH (08:35)
[2017-10-14] MEDS: ASPIRIN EC 81 MG TABEC PO SCH (08:35)
[2017-10-14] MEDS: CHOLECALCIFEROL (VIT D3) 1000 UNIT TAB PO SCH (08:35)
[2017-10-14 17:00] VITALS: BP 120/62; PULSE 62; RESP 18; TEMP 97.2; O2SAT 97
--- NOTE | 2017-10-14 18:17 | HHI.PYPN ---
Subjective Chief Complaint: Dementia Remarks Patient seen for follow-up, chart reviewed. Discussion with nursing staff reported that the patient has been pleasantly confused. Patient was found walking in the halls of the unit, calm and cooperative with interview. Patient states feeling "good", denies any physical complaints, A&O x 2, not to time nor did he know the president. Patient aware that he is in the hospital and awaiting placement. He is unclear to the circumstance that brought him in. Denies SI, HI AVH or delusions. Review of Systems Except as stated in HPI: all other systems reviewed are Neg Mental Status Examination Appearance: Appropriate Consciousness: Alert Orientation: Person, Place Motor Activity: Other Speech: Unremarkable Language: Other Fund of Knowledge: Adequate Attention and Concentration: Inadequate Memory: Impaired Mood: Appropriate Affect: Appropriate, Euthymic Thought Process & Associations: Circumstantial Thought Content: Other Hallucination Type: None Delusion Type: None Suicidal Ideation: No Suicidal Plan: No Suicidal Intention: No Homicidal Ideation: No Homicidal Plan: No Homicidal Intention: No Insight: Poor Judgment: Poor Results Vitals/IOs Vital Signs Date Time Temp Pulse Resp B/P (MAP) Pulse Ox O2 Delivery O2 Flow Rate FiO2 10/14/17 17:00 97.2 62 18 120/62 (81) 97 Intake and Output 10/14/17 10/14/17 10/15/17 08:00 16:00 00:00 Intake Total 720 ml 1200 ml Balance 720 ml 1200 ml Assessment & Plan Problem List: (1) Dementia with behavioral disturbance ICD Codes: F03.91 - Unspecified dementia with behavioral disturbance Assessment & Plan Patient continues with confusion and poor memory. Continue current treatment. Discharge planning in progress. Justification for Cont. Inpt. At risk for further decompensation if at lower level of care. Discharge Planning To be discharged to halfway once acquired. Request HC Surrog/Guard Advoc?: Yes Problem Qualifiers (1) Dementia with behavioral disturbance: Qualified Codes: F03.91 - Unspecified dementia with behavioral disturbance Zack Mcguire MD Oct 14, 2017 18:17
[2017-10-14] MEDS: OLANZapine 2.5 MG TAB PO SCH (20:40)
[2017-10-14] MEDS: MELATONIN 5 MG TAB PO PRN (20:40)
[2017-10-15 06:23] VITALS: BP 103/65; PULSE 55; RESP 16; TEMP 98; O2SAT 96
[2017-10-15] MEDS: CHOLECALCIFEROL (VIT D3) 1000 UNIT TAB PO SCH (08:35)
[2017-10-15] MEDS: ASPIRIN EC 81 MG TABEC PO SCH (08:35)
[2017-10-15] MEDS: CYANOCOBALAMIN 100 MCG TAB PO SCH (08:35)
[2017-10-15] MEDS ORDERED: OLAN2.5T7 PO (12:43)
[2017-10-15] MEDS ORDERED: CYAN100 PO (12:43)
--- NOTE | 2017-10-15 12:45 | HHI.DS ---
Psychiatry Discharge Summary Inpatient Psychiatric care?: Yes Advance Directive: No Reason Not Provided: Educated on Mental Health AdvanceDirective: No Health Care Proxy: No Admission Admission Date Oct 01, 2017 at 14:22 Admission Diagnosis: (1) Dementia with behavioral disturbance ICD Code: F03.91 - Unspecified dementia with behavioral disturbance Brief History Pt seen and discussed with staff. Chart reviewed. He is an 81 YOWM admitted to [facility] [place] under a BA due to self neglect agitation and confusion. He has been confused but pleasant. He can provide no meaningful history. He is compliant with medications and tolerating without side effects. No aggression or agitation on the unit. Staff report pt is confused and requires redirection. He has been compliant with care. No SI/HI Tobacco Use In Past 30 Days: No Tobacco Past 30 Days Alcohol Use: Never Hospital Course atient is a 81-year-old man, who reports that he lives alone has no family, supported by Social Security, single, previous psychiatric history of dementia, no psychiatric hospitalizations, no suicidal attempts, with no past medical history who presented with altered mental status and was [place] the [place] parking lot confused and unable to recall his address which he was admitted to the inpatient psychiatry unit for further evaluation and management. Patient started on quetiapine but later switched to olanzapine 2.5mg PO HS with good effect and tolerated well and noted to be calm and cooperative with staff. He was noted to be irritable at times and occasional episodes of agitation but redirectible. Patient was observed to have confusion at baseline secondary to neurocognitive deficits. Patient was observed to have poor immediate and recall memory, alert and oriented only to person and at times to place. Patient was noted to have been compliant with treatment with encouragement, cooperative with staff. Upon discharge patient stated that she was feeling good, denied any psychotic symptoms, denied any SI, HI or delusions. Patient agreed to continue medication regimen and outpatient follow up for continuity of care. Patient advised to call 911 or go nearest ED in case of emergency. Patient agrees with plan. Results Blood Pressure 103 / 65 Vital Signs Date Time Temp Pulse Resp B/P (MAP) Pulse Ox O2 Delivery O2 Flow Rate FiO2 10/15/17 06:23 98.0 55 16 103/65 (78) 96 Laboratory Results Test 10/02/17 08:49 Cholesterol Level 114 MG/DL (120-200) HDL Cholesterol 39.5 MG/DL (40.0-60.0) Hemoglobin A1c 5.6 % (4.3-6.0) LDL Cholesterol 57 MG/DL (0-99) Triglycerides Level 86 MG/DL (42-150) Summary of Procedures None Pending results at discharge: No Medications # of Antipsychotic meds at D/C: 1 Approp Antipsych med options 1 - Minimum of three failed multiple trials of monotherapy. 2 - Documented plan to taper to monotherapy due to previous use of multiple meds OR cross-taper in progress at D/C. 3 - Documentation of augmentation of Clozapine. 4 - Justification other than those listed in allowable values 1-3, document here : Discharge Discharge Date: Oct 15, 2017 Discharge Diagnosis: (1) Dementia with behavioral disturbance ICD Code: F03.91 - Unspecified dementia with behavioral disturbance Pt Condition on Discharge: Stable Discharge Disposition: ACLF/SHELTER Discharge Instructions Diet Instructions: Heart Healthy Diet Activities you can perform: Weight Bearing as Radha Discharge Time > 30 minutes Mental Status Examination Appearance: Appropriate Consciousness: Alert Orientation: Person, Place Motor Activity: Other Speech: Unremarkable Language: Other Fund of Knowledge: Adequate Attention and Concentration: Inadequate Memory: Impaired Mood: Appropriate Affect: Appropriate, Euthymic Thought Process & Associations: Circumstantial Thought Content: Appropriate Hallucination Type: None Delusion Type: None Suicidal Ideation: No Suicidal Plan: No Suicidal Intention: No Homicidal Ideation: No Homicidal Plan: No Homicidal Intention: No Insight: Poor Judgment: Poor Discharge/Advance Care Plan Health Problems: (1) Dementia with behavioral disturbance Goals to promote your health * To prevent worsening of your condition and complications * To maintain your health at the optimal level Directions to meet your goals Take your medications as prescribed Follow your dietary instruction Follow activity as directed Keep your appointments as scheduled Take your immunizations and boosters as scheduled If your symptoms worsen call your PCP, if no PCP go to Urgent Care Center or Emergency Room For 26/04 questions related to your inpatient stay or results of tests pending at discharge, please contact Dr. Zack Mcguire at Smoking is Dangerous to Your Health. Avoid second hand smoking Problem Qualifiers (1) Dementia with behavioral disturbance: Qualified Codes: F03.91 - Unspecified dementia with behavioral disturbance Zack Mcguire MD Oct 15, 2017 12:45
== END 2017-10-15 14:55 | DRG 884 ==
LOC: H260 14:22 → H250 10-06 10:19
PROVIDERS: ADMIT Psychiatry & Neurology Psychiatry; ATTEND Psychiatry & Neurology Psychiatry
DX: F03.91 Unspecified dementia, unspecified severity, with behavioral disturbance (principal); I73.9 Peripheral vascular disease, unspecified; E55.9 Vitamin D deficiency, unspecified; E87.6 Hypokalemia; K40.90 Unilateral inguinal hernia, without obstruction or gangrene, not specified as recurrent; Z91.83 Wandering in diseases classified elsewhere; Y92.481 Parking lot as the place of occurrence of the external cause; R41.82 Altered mental status, unspecified; Z59.0 Homelessness
CPT/HCPCS: 80048; 80061; 82306; 82607; 82746; 83036; 84425; 84443; 86592; 86703; 93005; J2060; J3420; Q0163